=== PATIENT | male | born 1940 | race Caucasian/White ===

== ENCOUNTER 2024-12-17 08:23 | Emergency (ER) | payer MEDICARE, SELFPAY ==
--- NOTE | ~2024-12-17 | XR_ITS ---
EXAMINATION: XR knee LT min 4V DATE: 12/17/2024 09:10 INDICATION: Left knee injury and pain and swelling. TECHNIQUE: 4 views of left knee were obtained. COMPARISON: None. FINDINGS: Alignment is normal. No fracture. There is moderate osteoarthritis of medial compartment an d mild osteoarthritis of lateral and patellofemoral compartments. There is a small knee joint effusio n. IMPRESSION: 1. Moderate left knee osteoarthritis. 2. Small left knee joint effusion. Reviewed, dictated and finalized at location B. ER WAITRESS
--- NOTE | ~2024-12-17 | XR_ITS ---
EXAMINATION: XR chest 2V DATE: 12/17/2024 09:10 INDICATION: Right-sided lower rib tenderness post fall TECHNIQUE: PA and lateral views of the chest were obtained. COMPARISON: None FINDINGS: Cortical angulation consistent with nondisplaced fracture of the lateral right ninth rib. Lungs are c lear with no focal airspace opacities, pulmonary edema, pleural effusion or pneumothorax. Heart size is normal. Tortuous and atherosclerotic thoracic aorta. Dual lead pacemaker seen with leads projectin g over the expected locations of the right atrium and right ventricle. Mild thoracic spondylosis with mild anterior wedging of a couple vertebral bodies at the thoracolumbar junction and additional midt horacic compression fracture. IMPRESSION: 1. Nondisplaced lateral right ninth rib fracture. 2. No acute cardiopulmonary disease. 3. Midthoracic compression fracture, likely chronic. Reviewed, dictated and finalized at location A. FEEDER
[2024-12-17 08:34] VITALS: BP 111/70; PULSE 86; RESP 16; TEMP 35.9; O2SAT 97
--- OUTSIDE RECORDS SUMMARY | 2024-12-17 08:34 | XMS_ITS ---
Author Organization [facility] Address [address] [place] [address] Phone Care Team Providers Care Health Informatics Instructor Name Role Phone Unavailable Unavailable Unavailable Plan of Treatment No Plan of Treatment Recorded Assessments Includes: Assessments for all patient encounters No Assessments Recorded Medical Equipment - Implanted Devices Includes: Current and historical Devices No Medical Equipment Recorded Medications Administered Includes: Administered Medications in patient's chart No Administered Medications Recorded Results Includes: Results from 12/17/2023 through 12/17/2024 No Results Recorded For Specified Dates History of Present Illness History of Present Illness not supported for this document type No History of Present Illness Recorded Social History No Social History Recorded - Smoking Status Unknown Medical History Includes: Medical History in patient's chart No Medical History Recorded Family History Includes: Family History in patient's chart No Family History Recorded Review of Systems Review of Systems not supported for this document type No Review of Systems Recorded Mental Status No Mental Status Recorded Functional Status No Functional Status Recorded Physical Exam Physical Exam not supported for this document type No Physical Exam Recorded Insurance Includes: Active Insurance Policies No Insurance Coverage Recorded Guarantor Relationship Effective Dates Guarantor Ph one THAD TORIBIO Self [id number] Clinical Notes Includes: Signed Clinical Notes starting from 12/13/2022 No Clinical Notes Recorded
--- OUTSIDE RECORDS SUMMARY | 2024-12-17 08:34 | XMS_ITS | Encounter Summary ---
Author Name [facility] Organization [facility] Address [address] [place] [address] Care Team Providers Care Specimen Accessioner Name Role Phone RADHA KLEIN Primary Care Provider Unavailuche e Insurance Providers: All historical and current Section Date Range: From patient's date of to the date document was created. This section includes the names of all active insurance providers for the patient. Insurance Provider Type of Coverage Plan Name Start of Policy Coverage End of Policy Coverage Group Number Member ID Insurance Provider's Telephone Number Policy Vo's Name Patient's Relationship to Policy Vo MEDICARE (WNR) MEDICARE (M) PART A Jan 22, 2003 PART A [id number] KEON DAVIS PATIENT MEDICARE (WNR) MEDICARE (M) PART B Jan 22, 2003 PART B [id number] KEON DAVIS PATIENT Selected Encounter This section includes the information on record at ID for the Encounter. Date/Time Encounter Type Encounter Description Reason Provider Source Nov 19, 2024 10:30 AM OFFICE O/P EST HI 40 MIN PRIMARY CARE/MEDICINE ICD-10-CM I48.91 Unspecified atrial fibrillation KATHIA KABA Prasanth Encounter Template Text not used by ID Assessments - Encounter Diagnoses This section includes the primary and secondary diagnoses documented for the Encounter. Date/Time Primary/Secondary Diagnosis Diagnosis Name Provider Source Nov 19, 2024 12:47 PM PRIMARY Unspecified atrial fibrillation KATHIA KABA [facility] Nov 19, 2024 12:47 PM SECONDARY Encounter for immunization KATHIA KABA [facility] Nov 19, 2024 12:47 PM SECONDARY Essential (primary) hypertension KATHIA KABA [facility] Nov 19, 2024 12:47 PM SECONDARY Hyperlipidemia, unspecified KATHIA KABA [facility] Nov 19, 2024 12:47 PM SECONDARY Malignant neoplasm of prostate KATHIA KABA [facility] Nov 19, 2024 12:47 PM SECONDARY Melanoma in situ, unspecified PROKATHIA MULLER [facility] Nov 19, 2024 12:47 PM SECONDARY Pain in right ankle and joints of right foot KATHIA KABA [facility] Nov 19, 2024 12:47 PM SECONDARY Type 2 diabetes mellitus without complications KATHIA KABA [facility] Nov 19, 2024 12:47 PM SECONDARY Unspecified dementia, mild, without beh/psych/mood/anx KATHIA KABA [facility] Plan of Treatment: Future Appointments (+ 6 months) and Future Tests (+/- 45 days) The Plan of Treatment section includes future care activities for the [facility] This section includes future appointments and future orders which are active, pending or scheduled. Future Appointments This section includes appointments that were scheduled to occur 6 months from the date of the Encounter, up to a maximum of 20 appointments. The data comes from all ID treatment facilities. Appointment Date/Time Appointment Type Appointme nt Facility Name Dec 06, 2024 09:30 AM AMBULATORY - REHAB MEDICIN E [facility] Lab Results: +/- 30 days of the encounter This section includes the Chemistry and Hematology Lab Results on record with ID for the patient. Radiology Reports and Pathology Reports are provided separately, in subsequent sections. Lab Results This section contains the Chemistry/Hematology Results that were resulted 30 days before or 30 daysafter the date of the Encounter. Date/Time Source Result Type Result - Unit Interpretation Reference Range Comment Nov 19, 2024 12:00 AM [facility] VITAMIN D, 25-HYDROXY Specimen Type: SERUM No comment entered. Ordering Provider: KATHIA KABA Report Released Date/Time: Nov 19, 2024 11:20 AM Reporting Lab: [facility] [address] [facility] [phone] Performing Lab: [facility] [address] [place] [phone] VITAMIN D, 25-HYDROXY 32.8 ng/mL 30-96 Nov 19, 2024 12:00 AM [facility] COMPREHENSIVE METABOLIC PANEL Specimen Type: PLASMA Comment: No hemolysis noted. Ordering Provider: KATHIA KABA Report Released Date/Time: Nov 19, 2024 11:20 AM Reporting Lab: [facility] [address] [place] [phone] Performing Lab: [address] [phone] CREATININE 0.76 mg/dL 0.7-1.3 UREA NITROGEN 17.3 mg/dL 9.0-25.0 GLUCOSE 141 mg/dL H 72-99 SODIUM 140 meq/L 136-145 POTASSIUM 4.7 meq/L 3.5-5 CHLORIDE 108 meq/L H 98-107 CARBON DIOXIDE 27 meq/L 22-31 CALCIUM 9.4 mg/dL 8.4-10.4 PROTEIN 7.4 g/dL 6-8.6 ALBUMIN 4.4 g/dL 3.4-5 TOTAL BILIRUBIN 0.7 mg/dL 0.2-1.2 ALKALINE PHOSPHATASE 80 U/L 40-150 AST/SGOT 20 U/L 5-34 ALT/SGPT 21 U/L 8-40 EGFR (CKD-EPI 2020) 87.5 >60 Nov 19, 2024 12:00 AM [facility] CB CBC Specimen Type: BLOOD No comment entered. Ordering Provider: KATHIA KABA Report Released Date/Time: Nov 19, 2024 11:20 AM Reporting Lab: [facility] [address] [place] [phone] Performing Lab: [address] [phone] WBC 7.4 10*3/uL 3.6-11.2 RBC 4.79 10*6/uL 4.10-5.70 HGB 13.7 g/dL 13.1-16.8 HCT 42.1 38.2-48.4 MCV 87.9 fL 80.0-100.0 MCH 28.6 pg 27.0-34.0 MCHC 32.5 g/dL L 33.0-36.0 PLT 216 10*3/uL 150-400 MPV 10.2 fL 7.5-11.2 RDW 12.0 11.8-15.1 LYMPHOCYTES, AUTO % 29 MONOCYTES, AUTO % 7 NEUTROPHILS, AUTO % 58 EOSINOPHILS, AUTO % 5 BASOPHILS, AUTO % 1 LYMPHOCYTES, ABSOLUTE 2.15 10*3/uL 0.77-4.50 MONOCYTES, ABSOLUTE 0.55 10*3/uL 0.19-0.80 NEUTROPHILS, ABSOLUTE 4.29 10*3/uL 2.10-8.00 EOSINOPHILS, ABSOLUTE 0.37 10*3/uL 0.00-0.60 BASOPHILS, ABSOLUTE 0.06 10*3/uL 0.00-0.20 Nov 19, 2024 12:00 AM [facility] HGA1C Specimen Type: BLOOD No comment entered. Ordering Provider: KATHIA KABA Report Released Date/Time: Nov 19, 2024 11:20 AM Reporting Lab: [facility] [address] [facility] [phone] Performing Lab: [facility] [address] [place] [phone] HGA1C 7.4 H 4.0-6.0 Nov 19, 2024 12:00 AM [facility] LIPID PANEL (STL) Specimen Type: PLASMA Comment: No hemolysis noted. Ordering Provider: KATHIA KABA Report Released Date/Time: Nov 19, 2024 11:20 AM Reporting Lab: [facility] [address] [facility] [phone] Performing Lab: [facility] [address] [facility] [phone] CHOLESTEROL 145 mg/dL 0-200 TRIGLYCERIDE 106 mg/dL 0-150 CALCULATED LDL 94 mg/dL HDL(New) 30 mg/dL L >40 Nov 19, 2024 12:00 AM [facility] MICRAL/CREAT PROFILE (STL) Specimen Type: URINE Comment: uALB/CREAT Ratio Unable to be calculated Unable to calculate due to Microalbumin < 5.0 mg/L Ordering Provider: KATHIA KABA Report Released Date/Time: Nov 19, 2024 11:20 AM Reporting Lab: [facility] [address] [place] [phone] Performing Lab: [address] [phone] URINE ALBUMIN (PB-STL) <5.0 mg/L uACR (STL) comment mg/g 0-29 CREATININE URINE/OTHERS 73.2 mg/dL 63-166 Nov 19, 2024 12:00 AM [facility] URINALYSIS (STL-PB) Specimen Type: URINE No comment entered. Ordering Provider: KATHIA KABA Report Released Date/Time: Nov 19, 2024 11:20 AM Reporting Lab: [address] [phone] Performing Lab: [address] [phone] URINE COLOR Light-Yellow Yellow U.BILIRUBIN Negative mg/dL Negative U.PH 6.5 5.0-8.0 URINE WBC/HPF <1 /[HPF] 0-5 URINE RBC/HPF <1 /[HPF] 0-5 APPEARANCE Clear Clear U.NITRITE Negative mg/dL Negative MUCUS RARE /[LPF] Negative -Ra re AMORPHOUS CRYSTALS OCC /[HPF] URN.GLUCOSE Normal mg/dL Negative URN.PROTEIN 50 mg/dL H URN.UROBILINOGEN Normal mg/dL Normal URN.BLOOD Negative mg/dL Negat alfredo-Tr cassidy URN.KETONES Negative mg/dL Neg ative-Tr cassidy URN.LEUK.EST. Negative mg/dL N egative-Tr cassidy URN.SPECIFIC GRAVITY 1.020 Nov 19, 2024 12:00 AM [facility] TSH (MA-PB) Specimen Type: SERUM No comment entered. Ordering Provider: KATHIA KABA Report Released Date/Time: Nov 19, 2024 11:20 AM Reporting Lab: [facility] [address] [place] [phone] Performing Lab: [address] [phone] TSH 0.928 u[IU]/mL 0.47-5 Vital Signs: All taken on the encounter date This section contains inpatient and outpatient Vital Signs collected on the date of the Encounter. Date/Time Temperature Pulse Blood Pressure Respiratory Rate SP02 Pain Height Weight Body Mass Index Source Nov 19, 2024 10:25 AM 140/84 [facility] Nov 19, 2024 10:25 AM 97.9 67 147/82 20 94 1 177.7 26 [facility] Immunizations: All administered on the encounter date This section contains immunizations associated to the Encounter. Immunization Series Date Issued Reaction Comments TDAP Nov 19, 2024 Social History: Smoking Status (Most current) and Tobacco Use (All prior to encounter date) This section includes the most current, and the historical, smoking and tobacco- related health factors from the ID facility where the Encounter took place. Current Smoking Status This section includes the most current smoking, or tobacco-related health factor, from the ID facility where the Encounter took place. Date/Time Current Smoking Status Comment Facil ity Nov 19, 2024 10:30 AM VA-TOBACCO USE EVERY DAY OTHER T [facility] Tobacco Use History This section includes a history of the smoking, or tobacco-related health factors, that were collected on or before the date of the Encounter. The data comes from the ID facility where the Encounter took place. Date/Time Smoking Status/Tobacco Use Comment F acility Nov 19, 2024 10:30 AM VA-TOBACCO NEVER USED OTHER TYPE [facility] Nov 19, 2024 10:30 AM VA-TOBACCO SCREEN FOLLOW-UP [facility] Nov 19, 2024 10:30 AM VA-TOBACCO USE ADVICE [facility] Nov 19, 2024 10:30 AM VA-TOBACCO USE INDUSTRIAL PHOTOGRAPHER NO [facility] Nov 19, 2024 10:30 AM VA-TOBACCO USE EVERY DAY OTHER T E [facility] Nov 19, 2024 10:30 AM VA-TOBACCO USE EVERY DAY SMOKELE SS [facility] Nov 19, 2024 10:30 AM VA-TOBACCO USE FORMER CIGARETTES [facility] Nov 19, 2024 10:30 AM VA-TOBACCO USE MED NO [facility] Oct 26, 2013 09:20 AM QUIT TOBACCO >7 YEARS AGO [facility] Encounter Notes: All associated encounter notes This section contains the clinical notes associated to the Encounter. Date/Time Encounter Note(s) Provider Source Nov 19, 2024 09:04 PM PHYSICIAN LETTERS: LOCAL TITLE: TEST RESULT GENERAL LETTER ST[facility] STANDARD TITLE: PHYSICIAN LETTERS DATE OF NOTE: NOV 19, 2024@21:04 ENTRY DATE: NOV 19, 2024@21:04:17 AUTHOR: KATHIA KABA EXP COSIGNER: URGENCY: STATUS: COMPLETED [facility] [address] [place] [address] NOV 19, 2024 KEON DAVIS [facility] [place] [address] Dear Keon Davis, I would like to update you on your recent test results. LIPID PROFILE - High cholesterol and triglycerides (lipids) are risk factors for heart disease. Your cholesterol should fall between 140 and 200, and your triglycerides levels should be less than or equal to 150. HDL is the good cholesterol and should ideally be greater than 40. LDL is the bad cholesterol and optimal levels should be less than 100 (near optimal is between 100 and 129). TRIGLYCERIDE 106 mg/dL 11/19/2024 00:00 CHOLESTEROL 145 mg/dL 11/19/2024 00:00 HDL(New) 30 L mg/dL 11/19/2024 00:00 CALCULATED LDL 94 mg/dL 11/19/2024 00:00 No DIRECT LDL EO data found These results are abnormal. The HDL is a little low. Please continue to take the atorvastatin. HEMOGLOBIN A1C - Gives us information about your diabetes (sugar or glucose) control over the past 3 months. Your target is to keep your A1C below 8 %. HGA1C 7.4 H % 11/19/2024 00:00 These results are abnormal. The A1C does show as high, but your A1C goal (due to your age) is under 8% and this is at goal. CBC - A complete blood count (CBC) gives important information about the kinds and numbers of cells in the blood, especially red blood cells, white blood cells, and platelets. HGB 13.7 g/dL 11/19/2024 00:00 HEMATOCRIT 42.1 % (11/19/24 00:00) PLT 216 10*3/uL 11/19/2024 00:00 WHITE BLOOD COUNT 7.4 10*3/uL (11/19/24 00:00) These readings are within normal limits. CHEM 7 - This is important information about the current status of your kidneys, liver, and electrolyte and acid/base balance as well as of your blood sugar and blood proteins. SODIUM 140 mEq/L 11/19/2024 00:00 POTASSIUM 4.7 mEq/L 11/19/2024 00:00 CHLORIDE 108 H mEq/L 11/19/2024 00:00 UREA NITROGEN 17.3 mg/dL 11/19/2024 00:00 CREATININE 0.76 mg/dL 11/19/2024 00:00 CALCIUM 9.4 mg/dL 11/19/2024 00:00 CARBON DIOXIDE 27 mEq/L 11/19/2024 00:00 GLUCOSE 141 H mg/dL 11/19/2024 00:00 EGFR (CKD-EPI 2020) 87.5 11/19/2024 00:00 These results are abnormal. The chloride is minimally elevated, please make sure to stay well-hydrated. The glucose is elevated, but the A1C is at goal. Please continue to take your medications. I did order the glucometer and testing supplies for you to monitor your blood sugar. LIVER FUNCTION PANEL - These are tests for liver function: PROTEIN 7.4 g/dL 11/19/2024 00:00 ALBUMIN 4.4 g/dL 11/19/2024 00:00 TOTAL BILIRUBIN 0.7 mg/dL 11/19/2024 00:00 ALKALINE PHOSPHATASE 80 U/L 11/19/2024 00:00 AST/SGOT 20 U/L 11/19/2024 00:00 ALT/SGPT 21 U/L 11/19/2024 00:00 These readings are within normal limits. TSH - Thyroid-stimulating hormone (also known as TSH or thyrotropin) is a peptide hormone synthesized and secreted by thyrotrope cells in the anterior pituitary gland, which regulates the endocrine function of the thyroid gland. TSH 0.928 uIU/mL 11/19/2024 These readings are within normal limits. VITAMIN D - Helps promote the proper utilization of calcium and phosphorus, thereby producing proper bone maintenance. VITAMIN D, 25-HYDROXY 32.8 ng/mL 11/19/2024 These readings are within normal limits. URINALYSIS - A urinalysis (or UA ) is an array of tests performed on urine and one of the most common methods of medical diagnosis. URINALYSIS URINE COLOR Light-Yellow 11/19/2024 00:00 APPEARANCE Clear 11/19/2024 00:00 U.PH 6.5 11/19/2024 00:00 U.BILIRUBIN Negative mg/dL 11/19/2024 00:00 U.NITRITE Negative mg/dL 11/19/2024 00:00 URINE RBC/HPF <1 /HPF 11/19/2024 00:00 URINE WBC/HPF <1 /HPF 11/19/2024 00:00 MUCUS RARE /LPF 11/19/2024 00:00 AMORPHOUS CRYSTALS OCC /HPF 11/19/2024 00:00 These results are abnormal. Make sure to stay well hydrated. FUTURE APPOINTMENTS: 12/06/2024 09:30 ALEX-VVC OT PAIN 11/18/2025 10:30 CLYDE-NOCO PACT 5 Sincerely, KATHIA KABA, MSN, ANP-C ADVANCED NURSE PRACTITIONER KEON DAVIS ROSA M [facility] Nov 19, 2024 10:34 AM PRIMARY CARE NOTE: LOCAL TITLE: PRIMARY CARE PROVIDER ESTABLISHED [facility] STANDARD TITLE: PRIMARY CARE NOTE DATE OF NOTE: NOV 19, 2024@10:34 ENTRY DATE: NOV 19, 2024@10:34:41 AUTHOR: KATHIA KABA EXP COSIGNER: URGENCY: STATUS: COMPLETED ESTABLISHED PATIENT [id number]: REASON FOR VISIT/CHIEF COMPLAINT: Patient of HIWOT Na, accompanied by his , for re-evaluation and management of his a fib, dm, prostate ca, hld, melanoma, pacemaker, htn, dementia, and OAB. HPI: Has cramps in his leg, mainly on right ankle, for the past year. Right ankle is mainly painful at night, Takes apap 1000 mg bid (8am and 8 pm). Denies any recent or past injury to the ankle, denies swelling, ertyhema. Wanting to get the Myrbetriq 50 mg from ID, using 2-3 depends per day, has persistent urinary leakage, still on the oxybutynin but not helping and causes a dry mouth. Seen by pvt urologist and there are to send the records again.. Patient and aware of need for the information for the prior approval Needs a BP monitor, does not have one Does not have a glucometer at home to check his blood sugars, has family members that are nurses. He has been taking the metformin. WHAT IS YOUR GOAL FOR TODAY? SOURCE(S) OF HISTORY: Patient Family PAST MEDICAL HISTORY: 1) Polyp of colon (SNOMED CT 85902546) 2) Benign hypertension (SNOMED CT 10407501) 3) Prostate cancer 4) Hearing loss (SNOMED CT 36723175) 5) Melanoma in situ 6) H/O: cardiac pacemaker in situ (SNOMED CT 487437597) 7) AF - Atrial Fibrillation (SCT 28135219) 8) Diabetes Mellitus Type 2 (SCT 10463457) 9) Hyperlipidemia 10) Generalized aches and pains SOCIAL HISTORY: tobacco: uses chew tobacco daily, not ready to quit etoh: none ALLERGIES: NIACIN ALLERGY REVIEW: Allergy list reviewed and remains current. MEDICATION RECONCILIATION: I have reviewed the patient's medication list with the patient and/or his/her care-safety engineer pressure vessels. Handwritten corrections, additions and/or deletions were made to the list. Corrected Outpatient Medication List was provided to the patient/caregiver. Active Outpatient Medications (including Supplies): Active Outpatient Medications Status 1) ACETAMINOPHEN 500MG TAB TAKE TWO TABLETS BY MOUTH THREE ACTIVE TIMES A DAY NEEDED CAUTION: DO NOT EXCEED 4000MG PER DAY ACETAMINOPHEN (APAP) FROM ALL MEDS. Indication: FOR PAIN 2) APIXABAN 5MG TAB TAKE ONE TABLET BY MOUTH TWICE A DAY ACTIVE Indication: FOR ANTICOAGULATION 3) ATORVASTATIN CALCIUM 40MG TAB TAKE ONE-HALF TABLET BY MOUTH ACTIVE EVERY EVENING TO LOWER CHOLESTEROL Indication: FOR HIGH CHOLESTEROL 4) DEPEND UNDERWEAR,MAXIMUM,MEN SM/MED USE 1 DIAPER TO AFFECTED ACTIVE AREA(S) THREE TIMES A DAY NEEDED Indication: FOR INCONTINENCE 5) DONEPEZIL HCL 10MG TAB TAKE ONE TABLET BY MOUTH ONCE A DAY ACTIVE (JUST BEFORE BEDTIME) Indication: FOR DEMENTIA 6) LISINOPRIL 5MG TAB TAKE ONE-HALF TABLET BY MOUTH ONCE A DAY ACTIVE (S) FOR HEART OR BLOOD PRESSURE Indication: FOR HIGH BLOOD PRESSURE 7) METFORMIN HCL 500MG 24HR SA TAB TAKE ONE TABLET BY MOUTH ACTIVE ONCE A DAY FOR BLOOD SUGAR CONTROL. TAKE WITH FOOD. AVOID ALCOHOL. DISCONTINUE BEFORE GETTING XRAY DYE. 8) METOPROLOL TARTRATE 50MG TAB TAKE ONE-HALF TABLET BY MOUTH ACTIVE (S) TWICE A DAY FOR HEART/BLOOD PRESSURE. TAKE WITH OR IMMEDIATELY FOLLOWING FOOD. Indication: FOR HIGH BLOOD PRESSURE 9) OXYBUTYNIN CHLORIDE 5MG TAB TAKE ONE TABLET BY MOUTH THREE ACTIVE TIMES A DAY Indication: FOR OVERACTIVE BLADDER REVIEW OF SYSTEMS: General: Denies fever or chills, weight loss or weight gain Eyes: Denies blurry or double vision. last eye exam 2 year ago Ears, Nose, Mouth, Throat: + hearing loss, nasal drainage or sore throat. Denies dizziness. Endo: Denies heat or cold intolerance, polydipsia, polyuria, or polyphagia. Cardiovascular: Denies chest pain, palpitations, or dizziness. Respiratory: Denies cough or + shortness of breath. Needs to walk per PCP ABD/GI: Denies abdominal pain, nausea, vomiting, constipation, or diarrhea. Musculoskeletal/Extremities: right ankle pain. Denies edema. 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 Frequent leakage Psych: Gets depressed during winter not able to go outside to fish, denies any si/hi. Denies anxiety, or + insomnia. Neuro: Denies PURI, tremors, neuropathy, or seizures. Dementia, has improved with the donepezil Skin: Denies rashes, skin lesions. PHYSICAL EXAMINATION: Male VITALS (most recent, as listed in the electronic record): B/P: 140/84 (11/19/2024 10:25) Pulse: 67 (11/19/2024 10:25) Temperature: 97.9 F [36.6 C] (11/19/2024 10:25) Weight: 177.7 lb [80.60 kg] (11/19/2024 10:25) Height: 69 in [175.3 cm] (10/26/2013 09:20) BMI: 26.3 Pain: 1 (11/19/2024 10:25) (0-10 scale) Gen:84 y/o wm in no apparent distress ENT: TM not visualized due to cerumen. Throat without ertyhema or exudate Neck: supple, no lymphadenopathy, no thyroidmegaly, or carotid bruits Lungs: CTA Heart: RRR S1S2-m/r/g Abdomen: soft, non-tender, no hepatosplenomegaly, + bowel sounds x 4 quadrants, neuro: alert and oriented, no focal deficits, ambulates with steady gate : deferred Psych: good affect, denies si/hi ext: no edema, + pedal pulses right ankle: no edema or erythema, normal ROM skin: warm and dry, no rashes or skin lesions DATA REVIEW: HbA1C: HGA1C 6.9 H % 11/25/2023 10:15 Lipid Panel: TRIGLYCERIDE 106 mg/dL 11/25/2023 10:15 CHOLESTEROL 127 mg/dL 11/25/2023 10:15 HDL(New) 32 L mg/dL 11/25/2023 10:15 CALCULATED LDL 74 mg/dL 11/25/2023 10:15 CMP: SODIUM 141 mEq/L 11/25/2023 10:15 POTASSIUM 4.0 mEq/L 11/25/2023 10:15 CHLORIDE 107 mEq/L 11/25/2023 10:15 UREA NITROGEN 17.1 mg/dL 11/25/2023 10:15 CREATININE 0.84 mg/dL 11/25/2023 10:15 CALCIUM 9.6 mg/dL 11/25/2023 10:15 PROTEIN 7.3 g/dL 11/25/2023 10:15 ALBUMIN 4.3 g/dL 11/25/2023 10:15 ALKALINE PHOSPHATASE 70 U/L 11/25/2023 10:15 ALT/SGPT 18 U/L 11/25/2023 10:15 AST/SGOT 21 U/L 11/25/2023 10:15 TOTAL BILIRUBIN 0.8 mg/dL 11/25/2023 10:15 CARBON DIOXIDE 22 mEq/L 11/25/2023 10:15 GLUCOSE 110 H mg/dL 11/25/2023 10:15 EGFR (CKD-EPI 2020) 85.5 11/25/2023 10:15 CBC: WBC 7.2 10*3/uL 11/25/2023 10:15 RBC 4.71 10*6/uL 11/25/2023 10:15 HGB 13.6 g/dL 11/25/2023 10:15 HCT 41.6 % 11/25/2023 10:15 MCV 88.3 fL 11/25/2023 10:15 MCH 28.9 pg 11/25/2023 10:15 MCHC 32.7 L g/dL 11/25/2023 10:15 RDW 12.2 % 11/25/2023 10:15 PLT 241 10*3/uL 11/25/2023 10:15 MPV 10.4 fL 11/25/2023 10:15 NEUTROPHILS, AUTO % 56 % 11/25/2023 10:15 LYMPHOCYTES, AUTO % 32 % 11/25/2023 10:15 MONOCYTES, AUTO % 7 % 11/25/2023 10:15 EOSINOPHILS, AUTO % 4 % 11/25/2023 10:15 BASOPHILS, AUTO % 1 % 11/25/2023 10:15 NEUTROPHILS, ABSOLUTE 4.08 10*3/uL 11/25/2023 10:15 LYMPHOCYTES, ABSOLUTE 2.31 10*3/uL 11/25/2023 10:15 MONOCYTES, ABSOLUTE 0.49 10*3/uL 11/25/2023 10:15 EOSINOPHILS, ABSOLUTE 0.30 10*3/uL 11/25/2023 10:15 BASOPHILS, ABSOLUTE 0.05 10*3/uL 11/25/2023 10:15 PSA: No PSA EO data found TSH: TSH 1.225 uIU/mL 11/25/2023 10:15 INR: No INR EO data found UA: URINE COLOR Light-Yellow 05/20/2023 10:04 APPEARANCE Clear 05/20/2023 10:04 U.PH 6.0 05/20/2023 10:04 U.BILIRUBIN Negative mg/dL 05/20/2023 10:04 U.NITRITE Negative mg/dL 05/20/2023 10:04 Dilantin: ____ Digoxin: No data available for: DIGOXIN Chest x-ray: No Radiology exams found. EKG: No data available for: EKG CONSULT STL EKG CONSULTS PB EKG RESULTS MA Result: Acceptable Follow-up Action: Data results reviewed with patient and/or ASSESSMENT/PLAN: 1. A. Fib: controlled, cont apixaban 5 mg bid and metoprolol tartrate 25 mg BID. Followed by his water inspector. 2. DM: A1C 6.9 in 11/2023, controlled, and on metformin. -recheck a1c, renal function, micral today -cont metformin -does not have a glucometer, will order meter and testing supplies and to call once receives so RNCM can make appt for education on the glucometer and testing. -foot exam completed today -to see pvt eye doctor for eye exam, last exam 2 years ago. 3. Prostate Ca: hx of prostatectomy, stable, followed by pvt urologist 4. hld: check flp, currently on atorvastatin 20 mg daily. 5. melanoma: no recurrence, followed by pvt clinical trials manager. 6. pacemaker: controlled, followed by pvt cardiology EP 7. htn: stable, cont lisinopril 5 mg daily. Does not have BP monitor and given one from clinic. 8. dementia: improved with the donepezil. 9. OAB: uncontrolled with the oxybutynin, waiting on records from his urologist so we can place a PADR for the Alicia, called to the urologist office and I gave them the fax number to the clinic. 10. Right ankle pain: for the year with no hx of injury, taking APAP twice daily at 8am and 8pm. Offered imaging of ankle but declined, discussed conservative measures for pain control, topical cream, moving PM dose of APAP closer to his bedtime and wants to start with this. 11. HM: Covid: Jul 2024 ([facility] per ). Flu: 07/2024 ([facility] per ). Prevnar 13: 2013 Pneumovax 23: 2020 TdaP: today Zostavax: 2014 RETURN TO CLINIC:6 months Return to Clinic order placed SUMMARY STATEMENT: Plan of care has been discussed with including expected therapeutic benefits and potential side effects of prescribed medication and treatments. verbalizes understanding and is in agreement with the plan of care. Patient was instructed to keep all scheduled appointments and contact management psychologist for any additional problems. PREVENTION & SCREENING: ALCOHOL: Clinical Reminder not due now or within a month BLOOD PRESSURE: Clinical Reminder not due now or within a month HEMOGLOBIN A1C: Clinical Reminder not due now or within a month Suicide Screen - V: C-SSRS Screening [place]-Suicide Severity Rating Scale (C-SSRS Screener) 1. Over the past month, have you wished you were or wished you could go to sleep and not wake up? No 2. Over the past month, have you had any actual thoughts of killing yourself? No 3. Over the past month, have you been thinking about how you might do this? Response not required due to responses to other questions. 4. Over the past month, have you had these thoughts and had some intention of acting on them? Response not required due to responses to other questions. 5. Over the past month, have you started to work out or worked out the details of how to kill yourself? Response not required due to responses to other questions. 6. If yes, at any time in the past month did you intend to carry out this plan? Response not required due to responses to other questions. 7. In your lifetime, have you ever done anything, started to do anything, or prepared to do anything to end your life (for example, collected pills, obtained a gun, gave away valuables, went to the roof but didn't jump)? No 8. If YES, was this within the past 3 months? Response not required due to responses to other questions. Sexual Orientation - CP,L,N,P,PH,PS,S,U: The patient thinks of their sexual orientation as: Straight or Heterosexual COVID-19 Immunization - L,N,P,PH,U: Vaccine given previously - no written/electronic documentation available Comment: given at [facility] The patient was instructed to bring a copy of their COVID-19 vaccine information to their next appointment so that this can be accurately recorded in their ID medical record. Alcohol Use Screen (AUDIT-C) - V: Alcohol Screen: SCREEN FOR ALCOHOL (AUDIT-C) An alcohol screening test (AUDIT-C) was negative (score=0). 1. How often did you have a drink containing alcohol in the past year? Consider a drink to be a 12 ounce can or bottle of regular beer, 8 ounces of malt liquor, a 5 ounce glass of table wine, or a 1.5 ounce shot of liquor (like scotch, gin, or vodka). Never 2. How many drinks containing alcohol did you have on a typical day when you were drinking in the past year? Response not required due to responses to other questions. 3. How often did you have six or more drinks on one occasion in the past year? Response not required due to responses to other questions. Depression Screening - V: Perform PHQ-2 A PHQ-2 screen was performed. The score was 2 which is a negative screen for depression. Over the past two weeks, how often have you been bothered by the following problems? 1. Little interest or pleasure in doing things Several days 2. Feeling down, depressed, or hopeless Several days Homelessness/Food Insecurity Screen - DI,L,N,P,PH,PS,S,U: In the past 2 months, have you been living in stable housing that you own, rent, or stay in as part of a household? Yes - Living in stable housing. Are you worried or concerned that in the next 2 months you may NOT have stable housing that you own, rent, or stay in as part of a household? No - Not worried about housing near future The reports the following: Within the past 12 months, you worried whether your food would run out before you got money to buy more. Never true Within the past 12 months, the food you bought just didn't last and you didn't have money to get more. Never true Influenza Immunization - L,N,P,PH,U: Seasonal Flu Vaccine The influenza vaccine clinical reminder is not due at this time. Tobacco Use Screening - AT,DE,L,M,N,P,PH,PS,RT,S,U: The patient is a former cigarette smoker. The patient uses other type(s) of tobacco every day. Other Tobacco Type(s) used: Smokeless tobacco (e.g., dip, chew, snuff, snus) Patient was advised to stop smoking and/or using other tobacco products. Advised patient that a combination of behavioral counseling and FDA-approved cessation medications is the most effective way to ensure their success in stopping to smoke and/or using other tobacco products. The patient was not interested in additional information about behavioral counseling and other support strategies discussed. Informed patient that medications can help with cravings and withdrawal symptoms, and they greatly increase the chances of successfully stopping your tobacco use. The patient was not interested in a prescription for tobacco cessation medications. Frail/Elderly Screen: ADL Screen - Wiseman Index of [place] in Activities of Daily Living Bathing: (3 Points) Receives no assistance (gets in and out of tub by self, if tub is usual means of bathing) Dressing: (3 Points) Gets clothes and gets completely dressed without assistance. Toileting: (3 Points) Goes to toilet room , cleans self, and arranges clothes without assistance (may use object for support such as cane, walker, or wheelchair, and may manage own night bedpan or commode, emptying same next morning) Transferring: (3 Points) Moves in and out of bed and in and out of chair without assistance (may be using object for support, such as cane or walker) Continence: (2 Points) Has occasional accidents or urination or bowels Feeding: (3 Points) Feeds self without assistance Total Score: 17 Points 18 = High (patient independent) 6 = Low (patient very dependent) IADL Screen - [place] Instrumental Activities of Daily Living Scale Ability to use telephone: (1 point) Operates Telephone on own initiative; looks up and dials numbers. Shopping: (1 point) Takes care of all shopping needs independently. Food preparation: (1 point) Plans, prepares, and serves adequate meals independently. Housekeeping: (1 point) Performs light daily tasks such as dishwashing, bed making. Laundry: (1 point) Does personal laundry completely. Mode of transportation: (1 point) Travels independently on public transportation or drives own car. Responsibility for own medications: (1 point) Is responsible for taking medications in correct dosages at correct times. Ability to handle finances: (1 point) Manages financial matters independently (budgets, writes checks, pays rent and bills, goes to bank); collects and keeps track of income. Total score: 8 points 8 = High function, independent 0 = Low function, dependent Falls Screen: No falls within the past 12 months. Incontinence Screen: YES - Incontinence is a problem for this patient. Is urinary incontinence NEW for this patient? NO - Incontinence is NOT a new problem. What is the current treatment? oxybutynin and to be trialed on [facility] At-Risk Screen - L,N,PH,U: Patient identified to be at risk for the following eye condition(s): DIABETIC RETINOPATHY: Diabetes Diagnosis Information: Encounter Diagnosis: 11/21/2023@14:30 E11.9 (ICD-10-CM) Type 2 Diabetes Mellitus without Complications rank: PRIMARY Prov. Narr. - Diabetes Mellitus Type 2 ([facility] [id number]) Action: No Referral Ordered: Eye exam completed elsewhere by an Refractory Manager or Cabin Cleaning Supervisor Diabetic retinal exam result: Results Unknown (recommended that patient proceed with eye care request or obtain outside retinal exam result within 90 days) Date: 2021 ? Exact date is unknown Location: [facility] Foot Check - L,N,P,PH,PO,PT,U: A complete foot check was completed at this encounter. VISUAL INSPECTION: Includes inspection for skin breaks, deformity, erythema, trauma, pallor on elevation, dependent rubor, nail deformities, extensive callus and pitting edema. Visual exam results: Normal PEDAL PULSES: Includes palpation of dorsalis and posterior tibial pulses and signs/symptoms of vascular compromise like pain, pallor, parasthesia or paralysis. Present (even if diminished) SENSORY CHECK: Includes 10 gram Monofilament (Beaver-Jey) test of sensation. Intact (Greater than or equal to 80% of sites checked) Abnormal (Less than 80% of sites checked): Intact LOW-RISK: LOW RISK INFORMATION PROVIDED: 1. Advised patient not to walk barefoot. 2. Explained the importance of daily foot checks for changes. 3. Stressed the importance of daily foot hygiene, including bathing and complete drying. The patient verbalized understanding and was offered a detailed handout on diabetic foot care. Prior Approval/Non-formulary Drug: MEDICATION USE EVALUATION Tdap Immunization - L,N,P,PH,U: See orders /es/ KATHIA KABA, MSN, ANP-C ADVANCED NURSE PRACTITIONER Signed: 11/19/2024 12:47 KATHIA KABA [facility] Nov 19, 2024 10:30 AM NURSING NOTE: LOCAL TITLE: V15 PACT FACE TO FACE NOTE STL STANDARD TITLE: NURSING NOTE DATE OF NOTE: NOV 19, 2024@10:30 ENTRY DATE: NOV 19, 2024@10:30:35 AUTHOR: KALPANA ROJAS COSIGNER: URGENCY: STATUS: COMPLETED V15 PACT FACE TO FACE NOTE STL Has ADDENDA Provider Visit: Patient Identifiers : Full Name Date of Reason for visit: Established Follow-Up Mode of Arrival: Ambulatory Allergy Review: NIACIN Allergy list reviewed and remains current. Recent Vital Signs: Temperature: 97.9 F [36.6 C] (11/19/2024 10:25) Pulse: 67 (11/19/2024 10:25) Respiration: 20 (11/19/2024 10:25) B/P: 140/84 (11/19/2024 10:25) Pain: 1 (11/19/2024 10:25) Wt: 177.7 lb [80.60 kg] (11/19/2024 10:25) Ht: 69 in [175.3 cm] (10/26/2013 09:20) BMI: 26.3 POX: 94% (11/19/2024 10:25) PERSONAL HEALTH INVENTORY Notes: No data available for PHI note titles PERSONAL HEALTH INVENTORY - MAP: No data available for PHI MAP What matters most to you in your life right now? 's Response: Living another a year Would you like to discuss any personal problem, family problem, alcohol use, drug use, or a mental or emotional illness? No [facility] ([facility]), please select appointment type: Face to face: No- Are you interested in getting this done? No Contact provided Primary Care phone number and encouraged to call if any questions or concerns. Review that after hours nurse line [phone] and emergency room are available 16/06 for patient use. Contact verbalized good understanding. No notification required for this note. /luis/ KALPANA ROJAS REGISTERED NURSE, LINOTYPE OPERATOR Signed: 11/19/2024 10:33 11/19/2024 ADDENDUM STATUS: COMPLETED COVID-19 Immunization - L,N,P,PH,U: Patient received a prior dose of the Pfizer Monovalent vaccine. Documented: COVID-19 ([employer]), MRNA, LNP-S, PF, ARIELLE-SUCROSE, 30 MCG/0.3 ML (AGES 12+ YEARS) Historical Date Administered: Jul 25, 2024 Series: Booster Outside Location: [facility] Information Source: FROM PATIENT'S WRITTEN RECORD Influenza Immunization - L,N,P,PH,U: The patient has received the seasonal influenza vaccine for the current season at another location. Documented: INFLUENZA, UNSPECIFIED FORMULATION Historical Date Administered: Jul 25, 2024 Series: Complete Outside Location: [facility] Information Source: FROM PATIENT'S WRITTEN RECORD Alcohol Use Screen (AUDIT-C) - V: Alcohol Screen: SCREEN FOR ALCOHOL (AUDIT-C) An alcohol screening test (AUDIT-C) was negative (score=0). 1. How often did you have a drink containing alcohol in the past year? Consider a drink to be a 12 ounce can or bottle of regular beer, 8 ounces of malt liquor, a 5 ounce glass of table wine, or a 1.5 ounce shot of liquor (like scotch, gin, or vodka). Never 2. How many drinks containing alcohol did you have on a typical day when you were drinking in the past year? Response not required due to responses to other questions. 3. How often did you have six or more drinks on one occasion in the past year? Response not required due to responses to other questions. Depression Screening - V: Perform PHQ-2 A PHQ-2 screen was performed. The score was 0 which is a negative screen for depression. Over the past two weeks, how often have you been bothered by the following problems? 1. Little interest or pleasure in doing things Not at all 2. Feeling down, depressed, or hopeless Not at all Frail/Elderly Screen: ADL Screen - Wiseman Index of [place] in Activities of Daily Living Bathing: (2 Points) Receives assistance in bathing only one part of the body (such as back or leg) Dressing: (2 Points) Gets clothes and gets dressed without assistance, except for assistance with tying shoes. Toileting: (2 Points) Receives assistance in going to toilet room or in cleansing self or in arranging clothes after elimination or in use of night bedpan or commode. Transferring: (3 Points) Moves in and out of bed and in and out of chair without assistance (may be using object for support, such as cane or walker) Continence: (2 Points) Has occasional accidents or urination or bowels Feeding: (3 Points) Feeds self without assistance Total Score: 15 Points 18 = High (patient independent) 6 = Low (patient very dependent) IADL Screen - [place] Instrumental Activities of Daily Living Scale Ability to use telephone: (1 point) Operates Telephone on own initiative; looks up and dials numbers. Shopping: (0 points) Needs to be accompanied on any shopping trip. Food preparation: (0 points) Heats and serves prepared meals, or prepares meals but does not maintain adequate diet. Housekeeping: (1 points) Needs help with all home maintenance tasks. Laundry: (0 points) All laundry must be done by others. Mode of transportation: (0 points) Travel limited to taxi or automobile with assistance of another. Responsibility for own medications: (0 points) Takes responsibility if medication is prepared in advance in separate dosages. Ability to handle finances: (0 points) Incapable of handling money. Total score: 2 points 8 = High function, independent 0 = Low function, dependent Falls Screen: No falls within the past 12 months. Incontinence Screen: YES - Incontinence is a problem for this patient. Is urinary incontinence NEW for this patient? NO - Incontinence is NOT a new problem. What is the current treatment? Depends Homelessness/Food Insecurity Screen - DI,L,N,P,PH,PS,S,U: In the past 2 months, have you been living in stable housing that you own, rent, or stay in as part of a household? Yes - Living in stable housing. Are you worried or concerned that in the next 2 months you may NOT have stable housing that you own, rent, or stay in as part of a household? No - Not worried about housing near future The [place] reports the following: Within the past 12 months, you worried whether your food would run out before you got money to buy more. Never true Within the past 12 months, the food you bought just didn't last and you didn't have money to get more. Never true Learning Assessment: - * This patient's learning ABILITIES, BARRIERS to learning, CULTURAL and YAZIDI beliefs, and learning PREFERENCES were assessed. Following are findings of note: Patient reads well. 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 Adjustments made to address the identified barrier include: Write down and patient reads back instructions. LANGUAGE Patient reports that Luxembourgish is preferred language for healthcare. Patient has the following vision barrier(s) to consider when teaching: The following barrier has been identified:, Requires glasses/contacts for reading Adjustments made to address the identified barrier include: Assure patient has glasses/contacts for reading., Large print material will be utilized. Patient reports learning preference is to refer to handouts. Patient reports learning preference is attending one-to-one or group demonstrations. Tobacco Use Screening - AT,DE,L,M,N,P,PH,PS,RT,S,U: The patient has never smoked cigarettes. The patient has never used other types of tobacco. Tdap Immunization - L,N,P,PH,U: Administered: TDAP Date Administered: Nov 19, 2024 10:30 Series: Complete Top Screw: [employer] PASTEUR Lot: [id number] Exp Date: Jan 21, 2026 [facility]: [id number] Admin Route/Site: INTRAMUSCULAR/LEFT DELTOID Dosage: 0.5mL Vaccine Information Statement(s): TDAP (TETANUS, DIPHTHERIA, PERTUSSIS) VACCINE VIS Jun 29, 2021 ([place]) Order By: Kathia Kaba Administered By: Kalpana Rojas Vaccine Information Sheet (VIS) was given to the patient/caregiver, education regarding adverse reactions was discussed, as well as barriers to learning, if any, were acknowledged. /luis/ KALPANA ROJAS REGISTERED NURSE, LINOTYPE OPERATOR Signed: 11/19/2024 11:16 KALPANA ROJAS [facility]
--- OUTSIDE RECORDS SUMMARY | 2024-12-17 08:34 | XMS_ITS | Continuity of Care Document ---
Author Name [facility] Organization [facility] Care Team Providers Care Tax Technician Name Role Phone [facility] Unavailable Unavailable Problems Combined list of problems from Department of Defense and Veterans Affairs facilities. It does not include entries that were removed or entered in error. Problem Status Onset Date Problem Type Date of Resolution Comments Source AF - Atrial Fibrillation (SCT 01770383) Active Condition [facility] Benign hypertension (SNOMED CT 55361827) Active Condition [facility] Dementia Active Condition [facility] Diabetes Mellitus Type 2 (SCT 11228792) Active Condition [facility] Generalised aches and pains Active Condition [facility] H/O: cardiac pacemaker in situ (SNOMED CT 289313061) Active Condition [facility] Hearing loss (SNOMED CT 36514662) Active Condition [facility] Hyperlipidemia Active Condition [facility] Melanoma in situ Active Condition 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 Diagnosis: ICD-10-CM E11.9 Type 2 diabetes mellitus without complications Active Diagnosis [facility] Diagnosis: ICD-10-CM Z51.81 Encounter for therapeutic drug level monitoring Active Diagnosis [facility] Medications Combined list of outpatient medications from Department of Defense and Veterans Affairs facilities.Medications provided include 1) outpatient medications from the last 15 months, and 2) patient-reported medications. Medication Details Route Status Patient Instructions Prescription Expires Prescription Number Last Dispense Date Ordering Provider Order Date Order Qty Source ACETAMINOPH EN 500MG TAB TAKE TWO TABLETS BY MOUTH THREE TIMES A DAY NEEDED FOR PAIN CAUTION: DO NOT EXCEED 4000MG PER DAY ACETAMIN OPHEN (APAP) FROM ALL MEDS. ORAL ACTIVE 11/20/2025 [id number] Messi MCCOY 2023 200 [facility] ACETAMINOPH EN 500MG TAB TAKE TWO TABLETS BY MOUTH THREE TIMES A DAY NEEDED FOR PAIN CAUTION: DO NOT EXCEED 4000MG PER DAY ACETAMIN OPHEN (APAP) FROM ALL MEDS. ORAL DISCONT INUED 11/21/2024 [id number] RADHA KLEIN 2022 200 [facility] APIXABAN 5MG TAB TAKE ONE TABLET BY MOUTH TWICE A DAY FOR ANTICOAG ULATION ORAL DISCONT INUED (EDIT) 10/31/2024 [id number] VIC CORTEZ 2023 180 [facility] APIXABAN 5MG TAB TAKE ONE TABLET BY MOUTH TWICE A DAY FOR ANTICOAG ULATION ORAL 11/21/2024 [id number] 4 RADHA KLEIN 2022 180 [facility] ATORVASTATI N CA 40MG TAB TAKE ONE-HALF TABLET BY MOUTH EVERY EVENING FOR HIGH CHOLESTE ROL TO LOWER CHOLESTE ROL ORAL ACTIVE 10/21/2025 [id number] 4 GOLDY GANDHI 2023 45 [facility] ATORVASTATI N CA 40MG TAB TAKE ONE-HALF TABLET BY MOUTH EVERY EVENING FOR HIGH CHOLESTE ROL TO LOWER CHOLESTE ROL ORAL DISCONT INUED 11/21/2024 [id number] 4 RADHA KLEIN 2022 45 [facility] ATORVASTATI N CA 40MG TAB TAKE ONE-HALF TABLET BY MOUTH EVERY EVENING TO LOWER CHOLESTE ROL ORAL DISCONT INUED (EDIT) 02/20/2024 [id number] WILLIAM BONILLA SA 2022 45 [facility] DONEPEZIL HCL 10MG TAB TAKE ONE TABLET BY MOUTH ONCE A DAY FOR DEMENTIA (JUST BEFORE BEDTIME) ORAL ACTIVE 07/23/2025 [id number] 4 RADHA KLEIN 2023 90 [facility] DONEPEZIL HCL 10MG TAB TAKE ONE-HALF TABLET BY MOUTH AT BEDTIME FOR 30 DAYS, THEN TAKE ONE TABLET AT BEDTIME FOR DEMENTIA (JUST BEFORE BEDTIME) ORAL DISCONT INUED (EDIT) 07/27/2024 [id number] 4 RADHA KLEIN 2023 75 [facility] LISINOPRIL 5MG TAB TAKE ONE-HALF TABLET BY MOUTH ONCE A DAY FOR HEART OR BLOOD PRESSURE ORAL SUSPEND ED 10/23/2025 [id number] RADHA KLEIN 2023 45 [facility] LISINOPRIL 5MG TAB TAKE ONE-HALF TABLET BY MOUTH ONCE A DAY FOR HEART OR BLOOD PRESSURE ORAL DISCONT INUED 11/21/2024 [id number] 4 RADHA KLEIN 2022 45 [facility] METFORMIN HCL 500MG 24HR TAB,SA TAKE ONE TABLET BY MOUTH ONCE A DAY FOR BLOOD SUGAR CONTROL. TAKE WITH FOOD. AVOID ALCOHOL. DISCONTI NUE BEFORE GETTING XRAY DYE. ORAL ACTIVE 10/21/2025 [id number] 5 GOLDY GANDHI 2023 30 [facility] METFORMIN HCL 500MG 24HR TAB,SA TAKE ONE TABLET BY MOUTH ONCE A DAY FOR BLOOD SUGAR CONTROL. TAKE WITH FOOD. AVOID ALCOHOL. DISCONTI NUE BEFORE GETTING XRAY DYE. ORAL DISCONT INUED 11/21/2024 [id number] RADHA KLEIN 2023 30 [facility] METFORMIN HCL 500MG 24HR TAB,SA TAKE ONE TABLET BY MOUTH ONCE A DAY FOR BLOOD SUGAR CONTROL. TAKE WITH FOOD. AVOID ALCOHOL. DISCONTI NUE BEFORE GETTING XRAY DYE. ORAL DISCONT INUED 11/21/2024 [id number] 4 RADHA KLEIN 2023 90 [facility] METFORMIN HCL 500MG 24HR TAB,SA TAKE ONE TABLET BY MOUTH ONCE A DAY FOR BLOOD SUGAR CONTROL. TAKE WITH FOOD. AVOID ALCOHOL. DISCONTI NUE BEFORE GETTING XRAY DYE. ORAL DISCONT INUED 04/12/2024 [id number] 3 WILLIAM BONILLA SA 2022 90 [facility] METOPROLOL TARTRATE 50MG TAB TAKE ONE-HALF TABLET BY MOUTH TWICE A DAY FOR HEART/BL OOD PRESSURE . TAKE WITH OR IMMEDIAT CONOR FOLLOWIN G FOOD. ORAL ACTIVE 10/21/2025 [id number] 5 GOLDY GANDHI 2024 90 [facility] METOPROLOL TARTRATE 50MG TAB TAKE ONE-HALF TABLET BY MOUTH TWICE A DAY FOR HEART/BL OOD PRESSURE . TAKE WITH OR IMMEDIAT CONOR FOLLOWIN G FOOD. ORAL DISCONT INUED 11/21/2024 [id number] RADHA KLEIN 2022 90 [facility] METOPROLOL TARTRATE 50MG TAB TAKE ONE-HALF TABLET BY MOUTH TWICE A DAY FOR HEART/BL OOD PRESSURE . TAKE WITH OR IMMEDIAT CONOR FOLLOWIN G FOOD. ORAL DISCONT INUED (EDIT) 02/20/2024 [id number] 3 WILLIAM BONILLA SA 2022 90 [facility] OXYBUTYNIN CL 5MG TAB TAKE ONE TABLET BY MOUTH THREE TIMES A DAY FOR OVERACTI VE BLADDER ORAL ACTIVE 04/29/2025 [id number] 4 RADHA KLEIN 2023 270 [facility] Allergies, Adverse Reactions, Alerts Combined list of allergies from Department of Defense and Veterans Affairs facilities. It does not include entries that were removed or entered in error. Substance Category Reaction Severity Reaction type Status Date Reported Comments Source NIACIN Propensity to adverse reactions to drug (finding) [place] active 05/22/2023 [facility] Immunizations Combined list of available immunizations from the Department of Defense and Veterans Affairs facilities. Immunization Series Date Given Administered By Site Reaction Lot Number CVX Code Drug Entry Table Operator Status Comments Source TDAP 2023 KALPANA ROJAS LEFT DELTO ID [id number] 115 complet [facility] COVID-19 (Respectance), MRNA, LNP-S, PF, ARIELLE-SUCROSE, 30 MCG/0.3 ML (AGES 12+ YEARS) 2023 309 complet [facility] INFLUENZA, UNSPECIFIED FORMULATION 2023 88 complet [facility] DIVISIO N INFLUENZA, UNSPECIFIED FORMULATION 2022 88 complet [facility]IS[facility] N ZOSTER RECOMBINANT 2 2022 PARK MCGILL L RIGHT DELTO ID [id number] 187 complet ed ADJUVANT [id number] 05/10/24 [facility] INFLUENZA VACCINE, QUADRIVALENT, ADJUVANTED 2021 205 complet [facility] ZOSTER RECOMBINANT 1 2021 187 complet [facility] COVID-19 (Respectance), MRNA, LNP-S, PF, 30 MCG/0.3 ML DOSE 3 2020 208 complet ed [facility] INFLUENZA, UNSPECIFIED FORMULATION 2020 88 complet [facility] DIVIS[facility] N INFLUENZA, HIGH-DOSE, QUADRIVALENT 2 2020 [facility] PPV23 2020 [facility] ([facility]ance), MRNA, LNP-S, PF, 30 MCG/0.3 ML DOSE 2 2020 208 complet [facility] N COVID-19 (PFIZER), MRNA, LNP-S, PF, 30 MCG/0.3 ML DOSE 1 2020 208 complet ed [facility] INFLUENZA, HIGH DOSE SEASONAL 1 2016 135 complet ed [facility] ZOSTER LIVE 2013 121 complet ed [facility] ZOSTER LIVE 1 2013 121 complet ed [facility] PNEUMOCOCCAL CONJUGATE PCV 13 2012 133 complet ed Immunizat ion Record [facility] TD(ADULT) UNSPECIFIED FORMULATION 2011 139 complet ed [facility] TD(ADULT) UNSPECIFIED FORMULATION 2007 139 complet ed Left Deltoid [facility] PNEUMOCOCCAL, UNSPECIFIED FORMULATION 2005 109 complet ed [facility] Results Combined list of recent chemistry, hematology and other laboratory results from Department of Defense and Veterans Affairs, ranging from 15 months to all on record, depending upon the facility. Order Name Results Value Reference Range Date Interpretation Specimen Comments Source VITAMIN D, 25-HYDROXY 25-HYDROXYV ITAMIN D3 [MASS/VOLUM E] IN SERUM OR PLASMA 32.8 ng/mL 30 - 96 11/19 Specimen Type: SERUM No comment entered. Ordering Provider: KATHIA MCCOY Report Released Date/Time: Nov 19, 2024 11:20 AM Reporting Lab: [facility] [address] [address] Performing Lab: [facility] [address] [place] [phone] [facility] CBC LEUKOCYTES [#/VOLUME] IN BLOOD BY AUTOMATED COUNT 7.4 10*3/u L 3.6 - 11.2 11/19 Specimen Type: BLOOD No comment entered. Ordering Provider: KATHIA MCCOY Report Released Date/Time: Nov 19, 2024 11:20 AM Reporting Lab: [facility] [address] [place] [phone] Performing Lab: [facility] [address] [address] [facility] CBC ERYTHROCYTE S [#/VOLUME] IN BLOOD BY AUTOMATED COUNT 4.79 10*6/u L 4.10 - 5.70 11/19 Specimen Type: BLOOD No comment entered. Ordering Provider: KATHIA MCCOY Report Released Date/Time: Nov 19, 2024 11:20 AM Reporting Lab: [address] [address] Performing Lab: [address] [address] [facility] CBC HEMOGLOBIN [MASS/VOLUM E] IN BLOOD 13.7 g/dL 13.1 - 16.8 11/19 Specimen Type: BLOOD No comment entered. Ordering Provider: KATHIA MCCOY Report Released Date/Time: Nov 19, 2024 11:20 AM Reporting Lab: [address] [address] Performing Lab: [address] [address] [facility] CBC HEMATOCRIT [VOLUME FRACTION] OF BLOOD 42.1 38.2 - 48.4 11/19 Specimen Type: BLOOD No comment entered. Ordering Provider: KATHIA MCCOY Report Released Date/Time: Nov 19, 2024 11:20 AM Reporting Lab: [address] [address] Performing Lab: [address] [address] [facility] CBC MCV [ENTITIC VOLUME] BY AUTOMATED COUNT 87.9 fL 80.0 - 100.0 11/19 Specimen Type: BLOOD No comment entered. Ordering Provider: KATHIA MCCOY Report Released Date/Time: Nov 19, 2024 11:20 AM Reporting Lab: [address] [address] Performing Lab: [address] [place] [address] [facility] CBC MCH [ENTITIC MASS] BY AUTOMATED COUNT 28.6 pg 27.0 - 34.0 11/19 Specimen Type: BLOOD No comment entered. Ordering Provider: KATHIA MCCOY Report Released Date/Time: Nov 19, 2024 11:20 AM Reporting Lab: [address] [address] Performing Lab: [address] [address] [facility] CBC MCHC [MASS/VOLUM E] BY AUTOMATED COUNT 32.5 g/dL 33.0 - 36.0 11/19 L Specimen Type: BLOOD No comment entered. Ordering Provider: KATHIA MCCOY Report Released Date/Time: Nov 19, 2024 11:20 AM Reporting Lab: [address] [address] Performing Lab: [address] [address] [facility] CBC PLATELETS [#/VOLUME] IN BLOOD BY AUTOMATED COUNT 216 10*3/u L 150 - 400 11/19 Specimen Type: BLOOD No comment entered. Ordering Provider: KATHIA MCCOY Report Released Date/Time: Nov 19, 2024 11:20 AM Reporting Lab: [address] [address] Performing Lab: [address] [address] [facility] CBC PLATELET MEAN VOLUME [ENTITIC VOLUME] IN BLOOD BY AUTOMATED COUNT 10.2 fL 7.5 - 11.2 11/19 Specimen Type: BLOOD No comment entered. Ordering Provider: KATHIA MCCOY Report Released Date/Time: Nov 19, 2024 11:20 AM Reporting Lab: [address] [address] Performing Lab: [address] [address] [facility] CBC ERYTHROCYTE DISTRIBUTIO N WIDTH [RATIO] BY AUTOMATED COUNT 12.0 11.8 - 15.1 11/19 Specimen Type: BLOOD No comment entered. Ordering Provider: KATHIA MCCOY Report Released Date/Time: Nov 19, 2024 11:20 AM Reporting Lab: [facility] [address] [facility] [address] Performing Lab: [facility] [address] [facility] [address] [facility] CBC LYMPHOCYTES /100 LEUKOCYTES IN BLOOD BY AUTOMATED COUNT 29 11/19 Specimen Type: BLOOD No comment entered. Ordering Provider: KATHIA MCCOY Report Released Date/Time: Nov 19, 2024 11:20 AM Reporting Lab: [facility] [address] [phone] Performing Lab: [facility] [address] [place] [phone] [facility] CBC MONOCYTES/1 00 LEUKOCYTES IN BLOOD BY AUTOMATED COUNT 7 11/19 Specimen Type: BLOOD No comment entered. Ordering Provider: KATHIA MCCOY Report Released Date/Time: Nov 19, 2024 11:20 AM Reporting Lab: [facility] [address] [phone] Performing Lab: [facility] [address] [facility] [address] [facility] CBC NEUTROPHILS /100 LEUKOCYTES IN BLOOD BY AUTOMATED COUNT 58 11/19 Specimen Type: BLOOD No comment entered. Ordering Provider: KATHIA MCCOY Report Released Date/Time: Nov 19, 2024 11:20 AM Reporting Lab: [facility] [address] [place] [address] Performing Lab: [facility] [address] [place] [phone] [facility] CBC EOSINOPHILS /100 LEUKOCYTES IN BLOOD BY AUTOMATED COUNT 5 11/19 Specimen Type: BLOOD No comment entered. Ordering Provider: KATHIA MCCOY Report Released Date/Time: Nov 19, 2024 11:20 AM Reporting Lab: [facility] [address] [facility] [address] Performing Lab: [facility] [address] [place] [phone] [facility] CBC BASOPHILS/1 00 LEUKOCYTES IN BLOOD BY AUTOMATED COUNT 1 11/19 Specimen Type: BLOOD No comment entered. Ordering Provider: KATHIA MCCOY Report Released Date/Time: Nov 19, 2024 11:20 AM Reporting Lab: [facility] [address] [place] [phone] Performing Lab: [address] [address] [facility] CBC LYMPHOCYTES [#/VOLUME] IN BLOOD BY AUTOMATED COUNT 2.15 10*3/u L 0.77 - 4.50 11/19 Specimen Type: BLOOD No comment entered. Ordering Provider: KATHIA MCCOY Report Released Date/Time: Nov 19, 2024 11:20 AM Reporting Lab: [address] [address] Performing Lab: [address] [address] [facility] CBC MONOCYTES [#/VOLUME] IN BLOOD BY AUTOMATED COUNT 0.55 10*3/u L 0.19 - 0.80 11/19 Specimen Type: BLOOD No comment entered. Ordering Provider: KATHIA MCCOY Report Released Date/Time: Nov 19, 2024 11:20 AM Reporting Lab: [facility] [address] [place] [phone] Performing Lab: [address] [address] [facility] CBC NEUTROPHILS [#/VOLUME] IN BLOOD BY AUTOMATED COUNT 4.29 10*3/u L 2.10 - 8.00 11/19 Specimen Type: BLOOD No comment entered. Ordering Provider: KATHIA MCCOY Report Released Date/Time: Nov 19, 2024 11:20 AM Reporting Lab: [facility] [address] [place] [phone] Performing Lab: [address] [address] [facility] CBC EOSINOPHILS [#/VOLUME] IN BLOOD BY AUTOMATED COUNT 0.37 10*3/u L 0.00 - 0.60 11/19 Specimen Type: BLOOD No comment entered. Ordering Provider: KATHIA MCCOY Report Released Date/Time: Nov 19, 2024 11:20 AM Reporting Lab: [address] [address] Performing Lab: [address] [phone] [facility] CBC BASOPHILS [#/VOLUME] IN BLOOD BY AUTOMATED COUNT 0.06 10*3/u L 0.00 - 0.20 11/19 Specimen Type: BLOOD No comment entered. Ordering Provider: KATHIA MCCOY Report Released Date/Time: Nov 19, 2024 11:20 AM Reporting Lab: [address] [address] Performing Lab: [address] [phone] [facility] COMPREHENS JONNY METABOLIC PANEL CREATININE [MASS/VOLUM E] IN SERUM OR PLASMA 0.76 mg/dL 0.7 - 1.3 11/19 Specimen Type: PLASMA Comment: No hemolysis noted. Ordering Provider: KATHIA MCCOY Report Released Date/Time: Nov 19, 2024 11:20 AM Reporting Lab: [address] [address] Performing Lab: [address] [address] [facility] COMPREHENS JONNY METABOLIC PANEL UREA NITROGEN [MASS/VOLUM E] IN SERUM OR PLASMA 17.3 mg/dL 9.0 - 25.0 11/19 Specimen Type: PLASMA Comment: No hemolysis noted. Ordering Provider: KATHIA MCCOY Report Released Date/Time: Nov 19, 2024 11:20 AM Reporting Lab: [facility] [address] [facility] [phone] Performing Lab: [facility] [address] [place] [phone] [facility] COMPREHENS JONNY METABOLIC PANEL GLUCOSE [MASS/VOLUM E] IN SERUM OR PLASMA 141 mg/dL 72 - 99 11/19 H Specimen Type: PLASMA Comment: No hemolysis noted. Ordering Provider: KATHIA MCCOY Report Released Date/Time: Nov 19, 2024 11:20 AM Reporting Lab: [facility] [address] [facility] [address] Performing Lab: [address] [address] [facility] COMPREHENS JONNY METABOLIC PANEL SODIUM [MOLES/VOLU ME] IN SERUM OR PLASMA 140 meq/L 136 - 145 11/19 Specimen Type: PLASMA Comment: No hemolysis noted. Ordering Provider: KATHIA MCCOY Report Released Date/Time: Nov 19, 2024 11:20 AM Reporting Lab: [place] [address] [facility] [address] Performing Lab: [facility] [address] [place] [phone] [facility] COMPREHENS JONNY METABOLIC PANEL POTASSIUM [MOLES/VOLU ME] IN SERUM OR PLASMA 4.7 meq/L 3.5 - 5 11/19 Specimen Type: PLASMA Comment: No hemolysis noted. Ordering Provider: KATHIA MCCOY Report Released Date/Time: Nov 19, 2024 11:20 AM Reporting Lab: [facility] [address] [facility] [address] Performing Lab: [facility] [address] [place] [phone] [facility] COMPREHENS JONNY METABOLIC PANEL CHLORIDE [MOLES/VOLU ME] IN SERUM OR PLASMA 108 meq/L 98 - 107 11/19 H Specimen Type: PLASMA Comment: No hemolysis noted. Ordering Provider: KATHIA MCCOY Report Released Date/Time: Nov 19, 2024 11:20 AM Reporting Lab: [facility] [address] [facility] [address] Performing Lab: [facility] [address] [facility] [address] [facility] COMPREHENS JONNY METABOLIC PANEL CARBON DIOXIDE, TOTAL [MOLES/VOLU ME] IN SERUM OR PLASMA 27 meq/L 22 - 31 11/19 Specimen Type: PLASMA Comment: No hemolysis noted. Ordering Provider: KATHIA MCCOY Report Released Date/Time: Nov 19, 2024 11:20 AM Reporting Lab: [place] [address] [facility] [address] Performing Lab: [place] [address] [facility] [address] [facility] COMPREHENS JONNY METABOLIC PANEL CALCIUM [MASS/VOLUM E] IN SERUM OR PLASMA 9.4 mg/dL 8.4 - 10.4 11/19 Specimen Type: PLASMA Comment: No hemolysis noted. Ordering Provider: KATHIA MCCOY Report Released Date/Time: Nov 19, 2024 11:20 AM Reporting Lab: [place] [address] [facility] [phone] Performing Lab: [place] [address] [facility] [address] [facility] COMPREHENS JONNY METABOLIC PANEL PROTEIN [MASS/VOLUM E] IN SERUM OR PLASMA 7.4 g/dL 6 - 8.6 11/19 Specimen Type: PLASMA Comment: No hemolysis noted. Ordering Provider: KATHIA MCCOY Report Released Date/Time: Nov 19, 2024 11:20 AM Reporting Lab: [facility] [employer] [facility] [address] Performing Lab: [address] [address] [facility] COMPREHENS JONNY METABOLIC PANEL ALBUMIN [MASS/VOLUM E] IN SERUM OR PLASMA 4.4 g/dL 3.4 - 5 11/19 Specimen Type: PLASMA Comment: No hemolysis noted. Ordering Provider: KATHIA MCCOY Report Released Date/Time: Nov 19, 2024 11:20 AM Reporting Lab: [facility] [address] [place], [place] [phone] Performing Lab: [facility] [address] [place] [phone] [place] [address] [facility] COMPREHENS JONNY METABOLIC PANEL BILIRUBIN.T OTAL [MASS/VOLUM E] IN SERUM OR PLASMA 0.7 mg/dL 0.2 - 1.2 11/19 Specimen Type: PLASMA Comment: No hemolysis noted. Ordering Provider: KATHIA MCCOY Report Released Date/Time: Nov 19, 2024 11:20 AM Reporting Lab: [place] [address] Performing Lab: [address] [phone] [place] [address] [facility] COMPREHENS JONNY METABOLIC PANEL ALKALINE PHOSPHATASE [ENZYMATIC ACTIVITY/VO LUME] IN SERUM OR PLASMA 80 U/L 40 - 150 11/19 Specimen Type: PLASMA Comment: No hemolysis noted. Ordering Provider: KATHIA MCCOY Report Released Date/Time: Nov 19, 2024 11:20 AM Reporting Lab: [facility] [address] [place], [place] [phone] Performing Lab: [address] [phone] [place] [address] [facility] COMPREHENS JONNY METABOLIC PANEL ASPARTATE AMINOTRANSF ERASE [ENZYMATIC ACTIVITY/VO LUME] IN SERUM OR PLASMA 20 U/L 5 - 34 11/19 Specimen Type: PLASMA Comment: No hemolysis noted. Ordering Provider: KATHIA MCCOY Report Released Date/Time: Nov 19, 2024 11:20 AM Reporting Lab: [facility] [address] [place] [phone] Performing Lab: [facility] [address] [place] [phone] [facility] COMPREHENS JONNY METABOLIC PANEL ALANINE AMINOTRANSF ERASE [ENZYMATIC ACTIVITY/VO LUME] IN SERUM OR PLASMA 21 U/L 8 - 40 11/19 Specimen Type: PLASMA Comment: No hemolysis noted. Ordering Provider: KATHIA MCCOY Report Released Date/Time: Nov 19, 2024 11:20 AM Reporting Lab: [facility] [address] [place] [id number] Performing Lab: [address] [address] [facility] COMPREHENS JONNY METABOLIC PANEL GLOMERULAR FILTRATION RATE/1.73 SQ M.PREDICTED [VOLUME RATE/AREA] IN SERUM, PLASMA OR BLOOD BY CREATININE- BASED FORMULA (CKD-EPI 2020) 87.5 60 11/19 Specimen Type: PLASMA Comment: No hemolysis noted. Ordering Provider: KATHIA MCCOY Report Released Date/Time: Nov 19, 2024 11:20 AM Reporting Lab: [address] [id number] Performing Lab: [address] [id number] [facility] HGA1C HEMOGLOBIN A1C/HEMOGLO BIN.TOTAL IN BLOOD 7.4 4.0 - 6.0 11/19 H Specimen Type: BLOOD No comment entered. Ordering Provider: KATHIA MCCOY Report Released Date/Time: Nov 19, 2024 11:20 AM Reporting Lab: [address] [phone] Performing Lab: [facility] [address] [place] [phone] [facility] LIPID PANEL (STL) CHOLESTEROL [MASS/VOLUM E] IN SERUM OR PLASMA 145 mg/dL 0 - 200 11/19 Specimen Type: PLASMA Comment: No hemolysis noted. Ordering Provider: KATHIA MCCOY Report Released Date/Time: Nov 19, 2024 11:20 AM Reporting Lab: [address] [phone] Performing Lab: [address] [phone] [facility] LIPID PANEL (STL) TRIGLYCERID E [MASS/VOLUM E] IN SERUM OR PLASMA 106 mg/dL 0 - 150 11/19 Specimen Type: PLASMA Comment: No hemolysis noted. Ordering Provider: KATHIA MCCOY Report Released Date/Time: Nov 19, 2024 11:20 AM Reporting Lab: [address] [address] Performing Lab: [place] [phone] [facility] LIPID PANEL (STL) CHOLESTEROL IN LDL [MASS/VOLUM E] IN SERUM OR PLASMA BY CALCULATION 94 mg/dL 11/19 Specimen Type: PLASMA Comment: No hemolysis noted. Ordering Provider: KATHIA MCCOY Report Released Date/Time: Nov 19, 2024 11:20 AM Reporting Lab: [place] [id number] Performing Lab: [address] [facility] LIPID PANEL (STL) CHOLESTEROL IN HDL [MASS/VOLUM E] IN SERUM OR PLASMA 30 mg/dL 40 11/19 L Specimen Type: PLASMA Comment: No hemolysis noted. Ordering Provider: KATHIA MCCOY Report Released Date/Time: Nov 19, 2024 11:20 AM Reporting Lab: [place] [phone] Performing Lab: [address] [phone] [place] [address] [facility] MICRAL/CRE AT PROFILE (STL) ALBUMIN [MASS/VOLUM E] IN URINE <5.0mg /L 11/19 Specimen Type: URINE Comment: uALB/CREAT Ratio Unable to be calculated Unable to calculate due to Microalbumin < 5.0 mg/L Ordering Provider: KATHIA MCCOY Report Released Date/Time: Nov 19, 2024 11:20 AM Reporting Lab: [place] [phone] Performing Lab: [address] [place] [address] [facility] MICRAL/CRE AT PROFILE (STL) ALBUMIN/CRE ATININE [MASS RATIO] IN URINE commen tmg/g 0 - 29 11/19 Specimen Type: URINE Comment: uALB/CREAT Ratio Unable to be calculated Unable to calculate due to Microalbumin < 5.0 mg/L Ordering Provider: KATHIA MCCOY Report Released Date/Time: Nov 19, 2024 11:20 AM Reporting Lab: [facility] [address] [place] [phone] Performing Lab: [address] [phone] [facility] MICRAL/CRE AT PROFILE (STL) CREATININE [MASS/VOLUM E] IN URINE 73.2 mg/dL 63 - 166 11/19 Specimen Type: URINE Comment: uALB/CREAT Ratio Unable to be calculated Unable to calculate due to Microalbumin < 5.0 mg/L Ordering Provider: KATHIA MCCOY Report Released Date/Time: Nov 19, 2024 11:20 AM Reporting Lab: [facility] [address] [place] [phone] Performing Lab: [place] [phone] [facility] URINALYSIS (STL-PB) COLOR OF URINE Light- Yellow 11/19 Specimen Type: URINE No comment entered. Ordering Provider: KATHIA MCCOY Report Released Date/Time: Nov 19, 2024 11:20 AM Reporting Lab: [facility] [address] [place] [phone] Performing Lab: [address] [facility] URINALYSIS (STL-PB) BILIRUBIN.T OTAL [PRESENCE] IN URINE BY TEST STRIP Negati vemg/d L 11/19 Specimen Type: URINE No comment entered. Ordering Provider: KATHIA MCCOY Report Released Date/Time: Nov 19, 2024 11:20 AM Reporting Lab: [facility] [address] [facility] [address] Performing Lab: [address] [phone] [facility] URINALYSIS (STL-PB) PH OF URINE BY TEST STRIP 6.5 5.0 - 8.0 11/19 Specimen Type: URINE No comment entered. Ordering Provider: KATHIA MCCOY Report Released Date/Time: Nov 19, 2024 11:20 AM Reporting Lab: [place] [address] [facility] [address] Performing Lab: [address] [address] [facility] URINALYSIS (STL-PB) LEUKOCYTES [#/AREA] IN URINE SEDIMENT BY MICROSCOPY HIGH POWER FIELD <1/[HP F] 0 - 5 11/19 Specimen Type: URINE No comment entered. Ordering Provider: KATHIA MCCOY Report Released Date/Time: Nov 19, 2024 11:20 AM Reporting Lab: [address] [phone] Performing Lab: [address] [phone] [facility] URINALYSIS (STL-PB) ERYTHROCYTE S [#/VOLUME] IN URINE SEDIMENT BY MICROSCOPY HIGH POWER FIELD <1/[HP F] 0 - 5 11/19 Specimen Type: URINE No comment entered. Ordering Provider: KATHIA MCCOY Report Released Date/Time: Nov 19, 2024 11:20 AM Reporting Lab: [address] [phone] Performing Lab: [address] [phone] [facility] URINALYSIS (STL-PB) APPEARANCE OF URINE Clear 11/19 Specimen Type: URINE No comment entered. Ordering Provider: KATHIA MCCOY Report Released Date/Time: Nov 19, 2024 11:20 AM Reporting Lab: [facility] [address] [facility] [address] Performing Lab: [facility] [address] [place] [phone] [facility] URINALYSIS (STL-PB) NITRITE [PRESENCE] IN URINE BY TEST STRIP Negati vemg/d L 11/19 Specimen Type: URINE No comment entered. Ordering Provider: KATHIA MCCOY Report Released Date/Time: Nov 19, 2024 11:20 AM Reporting Lab: [facility] [address] [place] [phone] Performing Lab: [address] [phone] [place] [address] [facility] URINALYSIS (STL-PB) MUCUS [PRESENCE] IN URINE SEDIMENT BY LIGHT MICROSCOPY RARE/[ LPF] 11/19 Specimen Type: URINE No comment entered. Ordering Provider: KATHIA MCCOY Report Released Date/Time: Nov 19, 2024 11:20 AM Reporting Lab: [facility] [address] [place] [phone] Performing Lab: [address] [phone] [facility] URINALYSIS (STL-PB) URATE CRYSTALS AMORPHOUS [PRESENCE] IN URINE SEDIMENT BY LIGHT MICROSCOPY OCC/[H PF] 11/19 Specimen Type: URINE No comment entered. Ordering Provider: KATHIA MCCOY Report Released Date/Time: Nov 19, 2024 11:20 AM Reporting Lab: [facility] [address] [place] [phone] Performing Lab: [facility] [address] [place] [phone] [facility] URINALYSIS (L-PB) GLUCOSE [MASS/VOLUM E] IN URINE BY TEST STRIP Normal mg/dL 11/19 Specimen Type: URINE No comment entered. Ordering Provider: KATHIA MCCOY Report Released Date/Time: Nov 19, 2024 11:20 AM Reporting Lab: [facility] [address] [place] [phone] Performing Lab: [facility] [address] [place] [phone] [facility] URINALYSIS (STL-PB) PROTEIN [MASS/VOLUM E] IN URINE BY TEST STRIP 50 mg/dL 11/19 H Specimen Type: URINE No comment entered. Ordering Provider: KATHIA MCCOY Report Released Date/Time: Nov 19, 2024 11:20 AM Reporting Lab: [address] [phone] Performing Lab: [address] [phone] [facility] URINALYSIS (STL-PB) URN.UROBILI NOGEN Normal mg/dL 11/19 Specimen Type: URINE No comment entered. Ordering Provider: KATHIA MCCOY Report Released Date/Time: Nov 19, 2024 11:20 AM Reporting Lab: [address] [phone] Performing Lab: [address] [phone] [place] [address] [facility] URINALYSIS (STL-PB) HEMOGLOBIN [MASS/VOLUM E] IN URINE BY TEST STRIP Negati vemg/d L 11/19 Specimen Type: URINE No comment entered. Ordering Provider: KATHIA MCCOY Report Released Date/Time: Nov 19, 2024 11:20 AM Reporting Lab: [address] [phone] Performing Lab: [address] [phone] [place] [address] [facility] URINALYSIS (STL-PB) KETONES [MASS/VOLUM E] IN URINE BY TEST STRIP Negati vemg/d L 11/19 Specimen Type: URINE No comment entered. Ordering Provider: KATHIA MCCOY Report Released Date/Time: Nov 19, 2024 11:20 AM Reporting Lab: [facility] [address] [facility] [phone] Performing Lab: [address] [address] [facility] URINALYSIS (STL-PB) URN.LEUK.ES T. Negati vemg/d L 11/19 Specimen Type: URINE No comment entered. Ordering Provider: KATHIA MCCOY Report Released Date/Time: Nov 19, 2024 11:20 AM Reporting Lab: [place] [address] [facility] [phone] Performing Lab: [place] [phone] [place] [address] [facility] URINALYSIS (STL-PB) SPECIFIC GRAVITY OF URINE 1.020 11/19 Specimen Type: URINE No comment entered. Ordering Provider: KATHIA MCCOY Report Released Date/Time: Nov 19, 2024 11:20 AM Reporting Lab: [address] [address] Performing Lab: [address] [phone] [place] [address] [facility]OC TSH (MA-PB) THYROTROPIN [UNITS/VOLU ME] IN SERUM OR PLASMA 0.928 u[IU]/ mL 0.47 - 5 11/19 Specimen Type: SERUM No comment entered. Ordering Provider: KATHIA MCCOY Report Released Date/Time: Nov 19, 2024 11:20 AM Reporting Lab: [place] [address] [facility] [address] Performing Lab: [place] [phone] [facility] HGA1C HEMOGLOBIN A1C/HEMOGLO BIN.TOTAL IN BLOOD 6.9 4.0 - 6.0 11/25 H Specimen Type: BLOOD No comment entered. Ordering Provider: MADELIN KLEIN Report Released Date/Time: Nov 21, 2023 03:06 PM Reporting Lab: [place] [address] [place] [address] Performing Lab: [facility] [address] [facility] [address] [facility] MICRAL/CRE AT PROFILE (STL) ALBUMIN [MASS/VOLUM E] IN URINE 11.4 mg/L 11/25 Specimen Type: URINE No comment entered. Ordering Provider: MADELIN KLEIN Report Released Date/Time: Nov 21, 2023 03:06 PM Reporting Lab: [facility] [address] [place] [phone] Performing Lab: [address] [phone] [facility] MICRAL/CRE AT PROFILE (STL) ALBUMIN/CRE ATININE [MASS RATIO] IN URINE 6 mg/g 0 - 29 11/25 Specimen Type: URINE No comment entered. Ordering Provider: MADELIN KLEIN Report Released Date/Time: Nov 21, 2023 03:06 PM Reporting Lab: [facility] [employer] [facility] [phone] Performing Lab: [address] [address] [facility] MICRAL/CRE AT PROFILE (STL) CREATININE [MASS/VOLUM E] IN URINE 197.2 mg/dL 63 - 166 11/25 H Specimen Type: URINE No comment entered. Ordering Provider: MADELIN KLEIN Report Released Date/Time: Nov 21, 2023 03:06 PM Reporting Lab: [facility] [employer] [facility] [address] Performing Lab: [address] [address] [facility] Vital Signs Combined list of inpatient and outpatient Vital Signs from Department of Defense and Veterans Affairs, ranging from 12 months to all on record, depending upon the facility. Vital Sign Value Date Comments Source SYSTOLIC BLOOD PRESSURE 147 11/19/2024 10:25:08 [facility] DIASTOLIC BLOOD PRESSURE 82 11/19/2024 10:25:08 [facility] PULSE OXIMETRY 94 11/19[facility]2024 [facility] WEIGHT 177.7 11/19/2024 10:25:08 [facility] [place] [facility] BMI 26kg/m2 11/19/2024 10:25:08 [facility] [place] [facility] PAIN 1 11/19/2024 10:25:08 [facility] Francia [facility] TEMPERATURE 97.9 11/19/2024 10:25:08 [facility] PULSE 67 11/19/2024 10:25:08 [facility] Francia [facility] RESPIRATION 20 11/19/2024 10:25:08 [facility] Encounters Combined list of: 1) Encounters from Department of [facility] facilities going back up to thelast 18 months. 2) Encounters from the Department of [facility] facilities going back up to 280 months. Location Location Details Encounter Type Encounter Number Reason For Visit Attending Provider ADM Date DC Date Status Disposition Source [facility] Outpatient Encounter [id number] 09/24 [facility] Outpatient Encounter [id number] 10/14 [facility] Outpatient Encounter [id number] 10/27 [facility] Outpatient Encounter [id number] 10/29 [facility] HC PRO PHONE CALL 5-10 MIN [id number] Diagnos is: ICD-10- CM Z51.81 Encount er for therape utic drug level monitor ing<br/ > THAD CORTEZ 10/31 [facility] N [facility] Outpatient Encounter [id number] 11/21 [facility] OFFICE O/P EST MOD 30-39 MIN [id number] Diagnos is: ICD-10- CM E11.9 Type 2 diabete s mellitu s without complic ations< br/> LATOYA,T ODD 11/21 [facility] Outpatient Encounter [id number] LATOYA,T ODD 11/28 [facility] FLU IMMUNIZE ORDER/ADMI N [id number] Diagnos is: ICD-10- CM Z23 Encount er for immuniz ation<b r/> YADY KNIGHT RA 12/02 [facility] Outpatient Encounter [id number] VANESSA WOOD 04/28 [facility] Outpatient Encounter [id number] PB HAILE 04/29 [facility] Outpatient Encounter [id number] 06/17 [facility] Outpatient Encounter [id number] VANESSA WOOD IDGET PILI 07/22 [facility] Outpatient Encounter [id number] VANESSA WOOD IDGET PILI 07/22 [facility] Outpatient Encounter [id number] VANESSA WOOD IDGET PILI 07/22 [facility] Outpatient Encounter [id number] 07/25 [facility] Outpatient Encounter [id number] 08/02 [facility] HC PRO PHONE CALL 11-20 MIN [id number] Diagnos is: ICD-10- CM Z91.138 Patient 's uninten t undrdos e of meds regimen for oth reason< br/> BRINA PENALOZA C 08/05 [facility] En[facility] [id number] BRINA PENALOZA C 08/30 [facility] Outpatient Encounter [id number] Diagnos is: ICD-10- CM Z02.9 Encount er for adminis trative examina tions, unspeci fied
KLEIN,T ODD 09/27 [facility] En[facility] [id number] 09/27 [facility] Outpatient Encounter [id number] ZITA DESAI O 09/27 [facility] Outpatient Encounter [id number] 09/28 [facility] Outpatient Encounter [id number] 10/19 [facility] Outpatient Encounter [id number] 10/20 [facility] Outpatient Encounter [id number] 10/26 [facility] OT EVAL MOD COMPLEX 45 MIN [id number] Diagnos is: ICD-10- CM 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
FLINT,ANDR EW H 11/09 [facility] N [facility] OFFICE O/P EST HI 40 MIN [id number] Diagnos is: ICD-10- CM I48.91 Unspeci fied atrial fibrill ation<b r/> SALVADOR MCCOY SA 11/19 [facility] Outpatient Encounter [id number] 11/19 [facility] N [facility] Outpatient Encounter [id number] 11/22 [facility] N [facility] Outpatient Encounter [id number] KLEIN,T ODD 11/23 [facility] N [facility] Outpatient Encounter [id number] 11/30 [facility] SELF CARE MNGMENT TRAINING [id number] Diagnos is: ICD-10- CM 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
FLINT,ANDR EW H 12/06 [facility] N Social History Combined list of available smoking, tobacco, and other social history from Department of Defense and Veterans Affairs facilities. Social History Type Response Date Comment Sourc e Tobacco smoking status NHIS VA-TOBACCO USE FORMER CIGARETTES 11/19/2024 [facility] History of tobacco use VA-TOBACCO USE EVERY DAY OTHER TYPE 11/19/2024 [facility] History of tobacco use [place]-TOBACCO USER EVERY DAY 05/22/2023 [facility] of [facility] WA[facility] 03/04/2022 [facility] History of tobacco use QUIT TOBACCO >7 YEARS AGO 10/26/2013 [facility]
--- OUTSIDE RECORDS SUMMARY | 2024-12-17 08:34 | XMS_ITS | Encounter Summary ---
Author Name [facility] (MD) Organization [facility] (MD) Address [address] [place] [address] Care Team Providers Care [employer] Travel Counselor Name Role Phone RADHA KLEIN Primary Care Provider Unavailuche gandhi Insurance Providers: All historical and current Section [...] PART A Jan 22, 2003 PART A [id number] [place] PATIENT MEDICARE (WNR) MEDICARE (M) PART B Jan 22, 2003 PART B [id number] [phone] [place] PATIENT Selected Encounter This section includes the information on record at MD for the Encounter. 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 Date/Time Primary/Secondary Diagnosis Diagnosis Name Provider Source Nov 09, 2024 10:00 AM PRIMARY Carcinoma in situ of prostate SANDEEP GUIDO [facility] Plan of Treatment: Future Appointments (+ 6 months) and Future Tests (+/- 45 days) The Plan of Treatment section includes future care activities for the patient from [facility]. This section includes future appointments and future orders which are active, pending or scheduled. Future Appointments This section includes appointments that were scheduled to occur 6 months from the date of the Encounter, up to a maximum of 20 appointments. The data comes from all MD treatment facilities. Appointment Date/Time Appointment Type Appointme nt Facility Name Nov 19, 2024 10:30 AM AMBULATORY - MEDICINE [facility] Dec 06, 2024 09:30 AM AMBULATORY - REHAB [facility]IC[facility] Lab Results: +/- 30 days of the encounter This section includes the Chemistry and Hematology Lab Results on record with MD for the patient. Radiology Reports and Pathology Reports are provided separately, in subsequent sections. Lab Results This section contains the Chemistry/Hematology Results that were resulted 30 days before or 30 daysafter the date of the Encounter. Date/Time Source Result Type Result - Unit Interpretation Reference Range Comment Nov 19, 2024 12:00 AM [facility] VITAMIN D, 25-HYDROXY Specimen Type: SERUM No comment entered. Ordering Provider: KATHIA MCCOY Report Released Date/Time: Nov 19, 2024 11:20 AM Reporting Lab: [facility] [address] [phone] Performing Lab: [facility] [address] [phone] VITAMIN D, 25-HYDROXY 32.8 ng/mL 30-96 Nov 19, 2024 12:00 AM [facility] COMPREHENSIVE METABOLIC PANEL Specimen Type: PLASMA Comment: No hemolysis noted. Ordering Provider: KATHIA MCCOY Report Released Date/Time: Nov 19, 2024 11:20 AM Reporting Lab: [facility] [address] [phone] Performing Lab: [place] [address] [address] CREATININE 0.76 mg/dL 0.7-1.3 UREA NITROGEN 17.3 [...] 87.5 >60 Nov 19, 2024 12:00 AM [facility] CBC Specimen Type: BLOOD No comment entered. Ordering Provider: KATHIA MCCOY Report Released Date/Time: Nov 19, 2024 11:20 AM Reporting Lab: [facility] [address] [phone] Performing Lab: [facility] [address] [phone] WBC 7.4 10*3/uL 3.6-11.2 RBC 4.79 10*6/uL [...] 10*3/uL 0.00-0.20 Nov 19, 2024 12:00 AM [facility] HGA1C Specimen Type: BLOOD No comment entered. Ordering Provider: KATHIA MCCOY Report Released Date/Time: Nov 19, 2024 11:20 AM Reporting Lab: [facility] [address] [place] [phone] Performing Lab: [address] [address] HGA1C 7.4 H 4.0-6.0 Nov 19, 2024 12:00 AM [facility] LIPID PANEL (STL) Specimen Type: PLASMA Comment: No hemolysis noted. Ordering Provider: KATHIA MCCOY Report Released Date/Time: Nov 19, 2024 11:20 AM Reporting Lab: [facility] [address] [place] [phone] Performing Lab: [address] [address] CHOLESTEROL 145 mg/dL 0-200 TRIGLYCERIDE 106 mg/dL 0-150 CALCULATED LDL 94 mg/dL HDL(New) 30 mg/dL L >40 Nov 19, 2024 12:00 AM [facility] MICRAL/CREAT PROFILE (STL) Specimen Type: URINE Comment: uALB/CREAT Ratio Unable to be calculated Unable to calculate due to Microalbumin < 5.0 mg/L Ordering Provider: KATHIA MCCOY Report Released Date/Time: Nov 19, 2024 11:20 AM Reporting Lab: [facility] [address] [place] [phone] Performing Lab: [facility] [address] [place] [phone] URINE ALBUMIN (PB-STL) <5.0 mg/L uACR (STL) comment mg/g 0-29 CREATININE URINE/OTHERS 73.2 mg/dL 63-166 Nov 19, 2024 12:00 AM [facility] URINALYSIS (STL-PB) Specimen Type: URINE No comment entered. Ordering Provider: KATHIA MCCOY Report Released Date/Time: Nov 19, 2024 11:20 AM Reporting Lab: [facility] [address] [place] [phone] Performing Lab: [facility] [address] [place] [phone] URINE COLOR Light-Yellow Yellow U.BILIRUBIN Negative mg/dL [...] GRAVITY 1.020 Nov 19, 2024 12:00 AM [facility] TSH (MA-PB) Specimen Type: SERUM No comment entered. Ordering Provider: KATHIA MCCOY Report Released Date/Time: Nov 19, 2024 11:20 AM Reporting Lab: [facility] [address] [place] [phone] Performing Lab: [address] [phone] TSH 0.928 u[IU]/mL 0.47-5 Encounter Notes: All associated encounter notes This section contains the clinical notes associated to the Encounter. Date/Time Encounter Note(s) Provider Source Nov 09, 2024 09:30 AM OCCUPATIONAL MEDIC INE CONSULT: LOCAL TITLE: OT CONSULT [facility] STANDARD TITLE: OCCUPATIONAL MEDICINE CONSULT DATE OF NOTE: NOV 09, 2024@09:30 ENTRY DATE: NOV 09, 2024@09:30:07 AUTHOR: SANDEEP GUIDO EXP COSIGNER: URGENCY: STATUS: [facility] OT HOME EVALUATION NOTE INITIAL Diagnosis: Carcinoma in situ of prostate(ICD-10-CM D07.5) Requesting Provider: RADHA KLEIN Reason for request: Home Access (ramps & handrails) Order/Precautions/Surgery/Pr ocedures performed: None Date of Initial Evaluation: NOV 09, 2024 Visit #: 1 Ca or NS #: 0 Total Treatment Time: 929 OT EVAL mod 75033: 25 minutes Appointment was conducted via telehealth/clinical video teleconferencing (CVT/VVC/VCM) to home/MD Video Connect/Virtual manager chemical. Gordon gave verbal consent prior to the start of the appointment. Gordon has been informed of and verbally consented to the followin. The nature of telehealth and its benefits and risks 2. Confidentiality and its limits 3. The emergency plan Patient's address, telephone number, and email during the session: [address] [place] [phone] Patient Email - [email or web address] Names of other individuals present in the home/outside clean up person: Contact information for above (if applicable): [id number]: Providers location and contact information for this appointment (verified with ): yes PROVIDER LOCATION NAME: Sandeep Guido PROVIDER PHONE: [phone] ext [phone] IMPACT OF TECHNOLOGY: Video and audio quality of the connection during this video-telehealth session were good. There were no identifiable technology barriers to the delivery of care in this session. No patient sessions are allowed to be recorded at any time without express consent of the patient. Any recordings [place] [id number] found here [email or web address].va.gov/vaforms/v [email or web address] Lock Virtual Conference Room Past Medical History: 1) Polyp of colon (SNOMED CT 39373278) 2) Benign hypertension (SNOMED CT 74333273) 3) Prostate cancer 4) Hearing loss (SNOMED CT 84817597) 5) Melanoma in situ 6) H/O: cardiac pacemaker in situ (SNOMED CT 232280709) 7) AF - Atrial Fibrillation (SCT 45352366) 8) Diabetes Mellitus Type 2 (SCT 58544138) 9) Hyperlipidemia 10) Generalised aches and pains SUBJECTIVE: We need a railing coming up to the front door Vet's personal goal: stair navigation Family/Caregiver goal: Same Pain: Pain Scale: Sitting at rest 7 on the 0-10 pain scale. (0=no pain, 10=unbearable pain). Sensation: occasional numbness and tingling in feet OBJECTIVE: Pt seen this date for home eval to assess home safety and equipment needs. Identification of who is present during eval: [x] spouse: Colleen [] child [] Caregiver [] other : EQUIPMENT CURRENTLY IN HOME: [] ramp [] w/c []manual []power []VA issued [] transport chair []VA issued [] walker []standard []2 wheeled []seated []VA issued [x]cane [x]straight - used outside the home on occasion []SBQC []LBQC []VA issued [] scooter []VA issued [] yasmin/ceiling lift [] hospital bed [] overbed trapeze [] bedside commode [] toilet rails [] toilet surround [] raised toilet seat [] shower chair [] tub transfer bench [] tub-mounted grab bar [] grab bar(s) and identify location: [] HH shower [] track vehicle repairer [] LH shoehorn [] dressing stick [] sock aid []long sponge [] bedcane/rail [] lift chair [] medical alert [] other HOME ENVIRONMENT: [x] own [] rental -Lives with: [] alone [x] spouse [] child: son/daughter [] friend [] other -Type of dwelling: [x] single level without basement [] 2-story with/without basement [] split level [] modular home with basement [] trailer [] apt [] senior citizen apt [] condo -Parking Vehicle to access is located: [] Street [] Parking Lot [] Driveway [x] Garage: attached [] Other -Walkway to doorway: Exterior of home: pathway is: [x]level []uneven []obscured -Entry: Main door being used to/from enter/exit home:[x]front []side []garage []backdoor Steps to doorway [x]yes How Many_2__ []no Rails[]yes [x]no and # Condition of stairs: [x] good condition [] repair needed [] rail loose Ramp available: []Y [x]N []NA Elevator available: []Y [x]N []NA Can pt safely evacuate house in case of emergency: []yes [x]no Secondary door being used to/from enter/exit home:[]front []side [x]garage [] backdoor Steps to doorway [x]yes. How Many_x__ []no Rails[x]yes []no and #___1___ Condition of stairs: [x] good condition [] repair needed [] rail loose Ramp available: []Y [x]N []NA Elevator available: []Y [x]N []NA Can pt safely evacuate house in case of emergency: [x]yes []no -Interior of home: Overall # of Interior Steps that will be used by the : 0 -Rivera: [] carpeting [] tile linoleum [x] hardwood [] area rugs -Condition of home [x] clean/neat [] cluttered [] dirty [] in need of repair [] uneven Traffic areas free from electrical/telephone cords/oxygen tubing: [x]yes [] no Exits and passageways kept clear: [x]yes []no Adequate lighting: [x]yes []no Animals in the home: []yes [x]no details: BATHROOM: Location used by patient:[x] main []2nd floor Bathing: [x]hallway [] master []tub [x]tub/shower combo []curtain [x]glass doors [] Fiberglass insert [x] tiled snowden []walk/roll-in shower with []curtain []sliding doors []swinging door [] Fiberglass insert []tiled snowden []Standing tub/shower []shower chair []tub bench [x]HH shower [x]grab bars [1] quantity [x]fixed []suction cup []tub rail [x]Nonskid floor or mat Challenge getting into and out of the shower [] Yes [] No Toileting: [x]hallway [] master []Regular height [x]Handicapped height []toilet surround []raised toilet seat []Grab Bars []Bidet []BSC []regular round seat [s]oblong elongated seat Style of sink in bathroom used: [x]Vanity []Pedestal Support use of ambulatory device: [x]yes []no Challenge getting onto and off the toilet [] Yes [x] No BEDROOM: [x]main []2nd floor []cluttered [x] clean Rivera: []carpet [x] hardwood [] laminate [] ceramic tile []vinyl Rug: [x]none []area []throw Bed: [][place] [x][place] [][facility] [] recliner [x] Standard flat mattress [] Height and HOB adjustable Nightlight: [x]yes []no Bed Cane [] Falling out of bed: [] Yes [x] No Challenge getting into and out of bed [] Yes [x] No SENSORY AND COMMUNICATION: completed VVC due to 's decreased hearing No further cognitive testing indicated MOBILITY: (I) on level surfaces []without device []cane []wheeled walker [] rollator []w/c []non-ambulatory -Transfers onto firm chairs with armrests (dining chairs, etc.) :[]INDEPENDENT []SETUP []SUPERVISION []NEEDS ASSISTANCE -Transfers onto soft chairs (recliner chairs/couches, etc.) :[]INDEPENDENT [] SETUP []SUPERVISION []NEEDS ASSISTANCE -Home Mobility: []INDEPENDENT []SETUP []SUPERVISION []NEEDS ASSISTANCE -Community Mobility: []INDEPENDENT []SETUP []SUPERVISION []NEEDS ASSISTANCE -Stairs: []INDEPENDENT []SETUP []SUPERVISION []NEEDS ASSISTANCE FUNCTIONAL ABILITY: -Eating: [x]INDEPENDENT []SETUP []SUPERVISION []NEEDS ASSISTANCE -Grooming:[x]INDEPENDENT []SETUP []SUPERVISION []NEEDS ASSISTANCE -Bathing: [x]INDEPENDENT []SETUP []SUPERVISION []NEEDS ASSISTANCE -UE Dressing: [x]INDEPENDENT []SETUP []SUPERVISION []NEEDS ASSISTANCE -LE Dressing:[x]INDEPENDENT []SETUP []SUPERVISION []NEEDS ASSISTANCE -Toileting: [x]INDEPENDENT []SETUP []SUPERVISION []NEEDS ASSISTANCE -Transfer - Bed, Chair, W/C: [x]INDEPENDENT []SETUP []SUPERVISION [] NEEDS ASSISTANCE -Transfer - Toilet: [x]INDEPENDENT []SETUP []SUPERVISION []NEEDS ASSISTANCE -Transfer - Tub, Shower: [x]INDEPENDENT []SETUP []SUPERVISION []NEEDS ASSISTANCE JOSHUA Section GG Self-Care and Mobility * TORRES: 6: Independent, 5: Setup or Cleanup Assistance. 4: Supervision or Touching Assistance. 3: Partial/Moderate Assistance. 2: Substantial/Maximal Assistance. 1: Dependent. 07: Refused. 09: Not Applicable Did not perform this activity prior. 10: Not Attempted Due to environmental limitations. 88: Not Attempted Due to medical condition/safety concerns IADLS/HOME MGMT SKILLS: -Meal Prep: [](I) [x]dependent who provides -Laundry: [](I) [x]dependent who provides -Transportation: [x](I) []dependent who provides shared -Medication Mgmt: [x](I) []dependent who provides [x]Description for med mgmt: pill box SKIN INTEGRITY/POSITIONING: [x]intact []sores [] bruising Instructed in importance of proper positioning and need for frequent repositioning. FALL RISK ASSESSMENTS: -FALL HISTORY:[x] none # in last 3 months # last 6 months -BOLAÑOS FALL RISK ASSESSMENT History of falling (within 3 months): 0 = No Secondary diagnosis contributing to fallin = Yes Ambulatory aid used during gait: 15 = crutches/cane/walker IV therapy: 0 = No Gait/transfer characteristics: 10 = weak Mental status: 0 = Oriented to own ability Total Score: 40 0-24 = Low Fall Risk, 25-44 = Moderate Fall Risk, 45 and higher = High Fall risk -ADDITIONAL RISK FACTORS: physical impairments, cognitive impairment, sensory deficits, orthostatic hypotension, incontinence, visual impairment, hearing impairment, environment hazards, pain affecting function, poly-pharmacy (9+ meds), low vitamin D level, weight loss, choosing not to use ambulatory assistive device, multiple medical problems. -Fall Risk Precautions/Interventions include: encourage non-slip footwear, night light and/or bathroom light left on, environmental hazards reduced as much as possible, individualize equipment to patient needs, exercise program, hip protectors, bed/chair/door alarms, encourage to wear medical alert device or keep phone within reach, orthostatic precautions, patient to use assistive device/patient to be accompanied by family/caregiver when transferring/ambulating, education on home safety/fall prevention techniques, bathroom safety. EQUIPMENT ORDERED ___Tub Bench __x_Shower Chair with armrests ___Grab Bars 16 long ___Tub Rail ___Safety Strips ___Hand Held Shower ___LH Sponge ___Versa Frame ___Raised Toilet Seat round ___Raised Toilet Seat elongated ___Toilet Safety surround ___Bedside Commode ___Bidet []handheld [] toilet seat ___Sock Aid ___Button Hook ___Shoe Horn ___Dressing Stick ___Reacher ___Doffer ___MediButler ___Lg Chief Information Officer Fork ___Lg Chief Information Officer Spoon ___Lipped Plate ___Dycem ___Rocker Knife _x__HISA: Handrails for front door stairs ___Ramp ___ Stairglide straight ___ Stairglide curved (must be able to independently transfer) ___Hoyer Lift (split leg vs full body & size) ___Bed Cane (no DME delivery installation available ___Hospital Bed (half rail/split rail/full rail) ___ [facility] [place] [facility] __VDC ___Other: Follow up for next session: HISA and shower chair. Patient education was ready to learn and demonstrated an understanding of equipment issued. Gordon given 1:1 instruction in equipment issued and/or home exercise program as noted above. PT/FAMILY EDUCATION AND RECOMMENDATIONS: [x]Home safety and fall prevention techniques [x]Bathroom safety [x]Use of equipment []HISA Application process []Correct use of cane/walker []Advised to decrease clutter to reduce the risk of tripping or slipping []Recommend removing or securing rugs []Energy conservation/work simplification techniques []Pressure reduction/Proper positioning ASSESSMENT: This 84 year old MALE with dx of carcinoma, was referred for HSE due to difficulty transferring into and out of the shower/onto and off the toilet/into and out of bed/lower body dressing/navigating stairs. Vet is able to complete ADLs/functional mobility independently. Pt requires assist with ADLs/functional mobility. Pt has family/OFFICE COMMUNICATION PROFESSOR that assists as needed. Pt is a fall risk. Pt/family was educated in DME/AE available and ordered appropriate equipment. Pt/family was also educated in home safety and fall prevention techniques. Pt/family verbalized/demonstrated understanding of equipment use and education. Gordon with challenges transferring into and out of the shower due to lower extremity weakness and instability, will benefit from the following equipment which the OT provided training and education on and will order: shower chair with armrests with challenges entering and exiting the home due to lower extremity weakness and instability, will benefit from the following equipment which the OT provided training and education on and will order: HISA for handrails for front door stairs Will return for 1 f/u visit if equipment was ordered for training and safety with vet in home. Barriers to goals: None Occupational Profile and History [] Brief (low) [x] Expanded (moderate) [] Extensive (high) Performance deficits identified: [x] ADLs [x] IADLs [x] Functional mobility [] Range of motion [] Muscle Strength [] Functional Endurance [] Functional Balance [] Fine motor coordination [x] Adaptive equipment needs [] Cognition [] Vision [] Coping skills [] Interpersonal interaction [] Impulse control [] Other (please specify: ) Torres: 1-3 performance deficits = Low complexity 3-5 performance deficits = moderate complexity 5 or more performance deficits = high complexity Level of Clinical Decision Making [] problem-focused assessment [x] detailed assessment [] comprehensive assessment --Therefore, from the findings above in Veterans Occupational Profile/History, Performance Deficits and level of clinical decision making, the OT Evaluation level of complexity of this patient was: [] Low [x] Moderate [] High PLAN: to be seen by OT 1 F/U visit to be trained in use for the above mentioned items and will be trained in proper use and safety of equipment. Discussed plan of care with /family and /family was agreeable to plan. Continued skilled occupational therapy as below to address: Treatment Plan: _x__ADLs ___UE AROM/AAROM/PROM _x__Transfers ___Cognition ___Coordination ___Endurance ___Gross/Fine Motor ___Home Management ___Visual Perception ___Standing Act. ___UE Strengthening ___Sensation/Compensation ___Visual Skills ___Facilitation ___Inhibition _x__Adaptive equipment Assessment ___Other: SHORT TERM GOALS = ASSISTED GOALS: To be achieved in (1 visit). 1. Demo use of any needed AE/DME with Mod I for ADls. 2. Demo Understanding of HISA madelin application process. Date of Initiation of Treatment Plan: NOV 09, 2024 Anticipated Discharge of Treatment Plan: November 2024 Pt education reminder VVC template- go to Shared templates, shared templated STL, A video Connect Visit Learning Assessment: Patient/Caregiver appeared ready for instruction (good eye contact, appropriate questions, active participation, etc.) Person(s) who received education: Patient Spouse/Significant Other Colleen Education Topic/Teaching Needs: Equipment Use/Safety shower chair with armrests Other: HISA application process Comment: Gordon educated on need to wait to start work until they have submitted a completed HISA application, color photos of the area(s) that will be modified before any work is done, and a bid for the materials and labor involved in the modification. Methods used included: One-on-one: verbal and vvc screen share Teaching outcomes: Good level of understanding /luis/ SANDEEP GUIDO Occupational Therapist, MOT OR/L Signed: 11/09/2024 10:00 SANDEEP GUIDO [facility]
--- OUTSIDE RECORDS SUMMARY | 2024-12-17 08:34 | XMS_ITS ---
Author Name [facility] [place] [facility] [place] Organization [facility] [place] Address [address] [place] [address] Care Team Providers Care Vice President Underwriting Name Role Phone RADHA KLEIN Primary Care [...] Policy Vo MEDICARE (WNR) MEDICARE (M) PART B Jan 22, 2003 PART B [id number] [phone] THAD TORIBIO PATIENT MEDICARE (WNR) MEDICARE (M) PART A Jan 22, 2003 PART A [id number] [phone] CATARINOTHAD PATIENT Selected Encounter This section includes the information on record at [place] for the Encounter. 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 Date/Time Primary/Secondary Diagnosis Diagnosis Name Provider Source Dec 06, 2024 09:47 AM PRIMARY Carcinoma in situ of prostate SANDEEP GUIDO [facility] Lab Results: +/- 30 days of the encounter This section includes the Chemistry and Hematology Lab Results on record with [place] for the patient. Radiology Reports and Pathology Reports are provided separately, in subsequent sections. Lab Results This section contains the Chemistry/Hematology Results that were resulted 30 days before or 30 daysafter the date of the Encounter. Date/Time Source Result Type Result - Unit Interpretation Reference Range Comment Nov 19, 2024 12:00 AM [facility] VITAMIN D, 25-HYDROXY Specimen Type: SERUM No comment entered. Ordering Provider: KATHIA MCCOY Report Released Date/Time: Nov 19, 2024 11:20 AM Reporting Lab: [address] [address] Performing Lab: [address] [address] VITAMIN D, 25-HYDROXY 32.8 ng/mL 30-96 Nov 19, 2024 12:00 AM [facility] CBC Specimen Type: BLOOD No comment entered. Ordering Provider: KATHIA MCCOY Report Released Date/Time: Nov 19, 2024 11:20 AM Reporting Lab: [facility] [address] [place] [address] Performing Lab: [address] [address] WBC 7.4 10*3/uL 3.6-11.2 RBC 4.79 10*6/uL [...] 10*3/uL 0.00-0.20 Nov 19, 2024 12:00 AM [facility] COMPREHENSIVE METABOLIC PANEL Specimen Type: PLASMA Comment: No hemolysis noted. Ordering Provider: KATHIA MCCOY Report Released Date/Time: Nov 19, 2024 11:20 AM Reporting Lab: [facility] [address] [facility] [address] Performing Lab: [address] [address] CREATININE 0.76 mg/dL 0.7-1.3 UREA NITROGEN 17.3 [...] 87.5 >60 Nov 19, 2024 12:00 AM [facility] HGA1C Specimen Type: BLOOD No comment entered. Ordering Provider: KATHIA MCCOY Report Released Date/Time: Nov 19, 2024 11:20 AM Reporting Lab: [facility] [address] [facility] [address] Performing Lab: [address] [address] HGA1C 7.4 H 4.0-6.0 Nov 19, 2024 12:00 AM [facility] LIPID PANEL (STL) Specimen Type: PLASMA Comment: No hemolysis noted. Ordering Provider: KATHIA MCCOY Report Released Date/Time: Nov 19, 2024 11:20 AM Reporting Lab: [address] [address] Performing Lab: [address] [address] CHOLESTEROL 145 mg/dL 0-200 TRIGLYCERIDE 106 mg/dL 0-150 CALCULATED LDL 94 mg/dL HDL(New) 30 mg/dL L >40 Nov 19, 2024 12:00 AM [facility] MICRAL/CREAT PROFILE (STL) Specimen Type: URINE Comment: uALB/CREAT Ratio Unable to be calculated Unable to calculate due to Microalbumin < 5.0 mg/L Ordering Provider: KATHIA MCCOY Report Released Date/Time: Nov 19, 2024 11:20 AM Reporting Lab: [address] [address] Performing Lab: [address] [address] URINE ALBUMIN (PB-STL) <5.0 mg/L uACR (STL) comment mg/g 0-29 CREATININE URINE/OTHERS 73.2 mg/dL 63-166 Nov 19, 2024 12:00 AM [facility] TSH (MA-PB) Specimen Type: SERUM No comment entered. Ordering Provider: KATHIA MCCOY Report Released Date/Time: Nov 19, 2024 11:20 AM Reporting Lab: [address] [address] Performing Lab: [address] [address] TSH 0.928 u[IU]/mL 0.47-5 Nov 19, 2024 12:00 AM [facility] URINALYSIS (STL-PB) Specimen Type: URINE No comment entered. Ordering Provider: KATHIA MCCOY Report Released Date/Time: Nov 19, 2024 11:20 AM Reporting Lab: [address] [address] Performing Lab: [address] [address] URINE COLOR Light-Yellow Yellow U.BILIRUBIN Negative mg/dL [...] mg/dL N egative-Tr cassidy URN.SPECIFIC GRAVITY 1.020 Encounter Notes: All associated encounter notes This section contains the clinical notes associated to the Encounter. 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 Douglas gave verbal consent prior to the start of the appointment. has been informed of and verbally consented to the followin. The nature of telehealth and its benefits and risks 2. Confidentiality and its limits 3. The emergency plan Patient's address, telephone number, and email during the session: [address] [place] [address] Patient Email - [email or web address]: Provider's location and contact information for this appointment (verified with Douglas): yes PROVIDER LOCATION NAME: Sandeep Guido PROVIDER PHONE: [phone] ext [phone] IMPACT OF TECHNOLOGY: Video and audio quality of the connection during this video-telehealth session were good. There were no identifiable technology barriers to the delivery of care in this session. No patient sessions are allowed to be recorded at any time without express consent of the patient. Any recordings [place] signed [place] of [place] [id number] found here [email or web address]://[email or web address].va.gov/vaforms/v [email or web address] Lock Virtual Conference Room SUBJECTIVE: The shower chair works great OBJECTIVE: Pt seen this date for home eval follow-up to assess any ongoing home safety and equipment needs. reported the following: Shower Chair with armrests - Received and working well HISA: Handrails for front door stairs Follow up for next session: HISA and shower chair. Treatment & Education: OT provided with their phone number for any ongoing home safety needs Identification of who is present during eval: [x] spouse: [] child [] Caregiver [] other : EQUIPMENT ORDERED None Patient education Douglas was ready to learn and demonstrated an understanding of equipment issued. given 1:1 instruction in equipment issued and/or home exercise program as noted above. PT/FAMILY EDUCATION AND RECOMMENDATIONS: []Home safety and fall prevention techniques []Bathroom safety []Use of equipment []HISA Application process []Correct use [...] requires assist with ADLs/functional mobility. Pt has family/BELL SPINNER SOUSAPHONES that assists as needed. Pt is a fall risk. Pt/family was educated in DME/AE available and ordered appropriate equipment. Pt/family was also educated in home safety and fall prevention techniques. Pt/family verbalized/demonstrated understanding of equipment use and education. All needs met at this time, D/C skilled OT. Barriers to goals: None SHORT TERM GOALS = TIRE REPAIR MECHANIC GOALS: To be achieved in (1 visit). 1. Demo use of any needed AE/DME with Mod I for ADls. Status: Goal met 2. Demo Understanding of HISA madelin application process Status: Goal met Date of Initiation of Treatment Plan: 11/09/2024 Anticipated Discharge of Treatment Plan: 12/06/2024 PLAN: D/C with no follow up after one visit secondary to achieving goal this visit. Douglas or caregiver will understand safe use of equipment listed above. will have verbal and written instructions on use of equipment. to be ordered equipment and sent to his/her home. No further follow up at this time. /luis/ SANDEEP GUIDO Occupational Therapist, MOT OR/L Signed: 12/06/2024 09:47 SANDEEP GUIDO [facility]
--- OUTSIDE RECORDS SUMMARY | 2024-12-17 08:34 | XMS_ITS ---
Care Plan - [facility] Created on: December 17, 2024 THAD TORIBIO : 1940 Sex: Male Author Organization [facility] Address [address] [place] [address] Phone Care Team Providers Care Group Sales Representative Name Role Phone Unavailable Unavailable Unavailable
--- OUTSIDE RECORDS SUMMARY | 2024-12-17 08:34 | XMS_ITS | Clinical Summary ---
Author Organization [facility] Address [address] [place] [address] Phone Care Team Providers Care Bin Cleaner Name Role Phone Unavailable Unavailable Unavailable Reason for Visit and Chief Complaint NEW PATIENT VISIT Plan of Treatment No Plan of Treatment Recorded Assessments Includes: Assessments from this encounter No Assessments Recorded Medical Equipment - Implanted Devices Includes: Current Devices No Medical Equipment Recorded Medications Administered Includes: Administered Medications from this encounter No Administered Medications Recorded Results Includes: Results discussed during this encounter No Results Recorded For Specified Dates History of Present Illness Includes: History of Present Illness from this encounter No History of Present Illness Recorded Social History No Social History Recorded - Smoking Status Unknown Medical History Includes: Medical History addressed during this encounter No Medical History Recorded Family History Includes: Family History addressed during this encounter No Family History Recorded Review of Systems Includes: Review of Systems from this encounter No Review of Systems Recorded Mental Status Includes: Mental Status from this encounter No Mental Status Recorded Functional Status Includes: Functional Status from this encounter No Functional Status Recorded Physical Exam Includes: Physical Exam from this encounter No Physical Exam Recorded Encounters Encounter Provider Location Date Check-In Time Check- Out Time Diagnosis NEW PATIENT VISIT [facility] 8 1:45PM 11:59PM Insurance Includes: Active Insurance Policies No Insurance Coverage Recorded Guarantor Relationship Effective Dates Guarantor Ph one THAD TORIBIO Self [id number] Clinical Notes Includes: Clinical Notes from this encounter No Clinical Notes Recorded
--- OUTSIDE RECORDS SUMMARY | 2024-12-17 08:34 | XMS_ITS | Encounter Summary ---
Author Name [facility] [facility] [place] [facility] [place] Address [address] [place] [address] Care Team Providers Care Business Improvement Manager Name Role Phone RADHA KLEIN Primary Care [...] PART A Jan 22, 2003 PART A [id number] THAD TORIBIO PATIENT MEDICARE (WNR) MEDICARE (M) PART B Jan 22, 2003 PART B [id number] THAD TORIBIO PATIENT Selected Encounter This section includes the information on record at [place] for the Encounter. Date/Time Encounter Type Encounter Description Reason Pro vider Source Oct 20, 2024 03:40 PM Outpatient Encounter ADMIN PAT ACTIVTIES (MASNONCT) IHE Encounter Template Text not used by [place] Plan of Treatment: Future Appointments (+ 6 months) and Future Tests (+/- 45 days) The Plan of Treatment section includes future care activities for the patient from all [facility] treatmentfacilities. This section includes future appointments and future orders which are active, pending or scheduled. Future Appointments This section includes appointments that were scheduled to occur 6 months from the date of the Encounter, up to a maximum of 20 appointments. The data comes from all [place] treatment [facility]. Appointment Date/Time Appointment Type Appointme nt Facility Name Nov 09, 2024 09:30 AM AMBULATORY - RE[facility]AB [facility] Nov 19, 2024 10:30 AM AMBULATORY - MEDICINE [facility] Dec 06, 2024 09:30 AM [facility] Lab Results: +/- 30 days of the encounter This section includes the Chemistry and Hematology Lab Results on record with [place] for the patient. Radiology Reports and Pathology Reports are provided separately, in subsequent sections. Lab Results This section contains the Chemistry/Hematology Results that were resulted 30 days before or 30 daysafter the date of the Encounter. Date/Time Source Result Type Result - Unit Interpretation Reference Range Comment Nov 19, 2024 12:00 AM [facility] VITAMIN D, 25-HYDROXY Specimen Type: SERUM No comment entered. Ordering Provider: KATHIA MCCOY Report Released Date/Time: Nov 19, 2024 11:20 AM Reporting Lab: [facility] [address] [facility] [address] Performing Lab: [facility] [address] [facility] [address] VITAMIN D, 25-HYDROXY 32.8 ng/mL 30-96 Nov 19, 2024 12:00 AM [facility] CBC Specimen Type: BLOOD No comment entered. Ordering Provider: KATHIA MCCOY Report Released Date/Time: Nov 19, 2024 11:20 AM Reporting Lab: [facility] [address] [facility] [address] Performing Lab: [place] [id number] [facility] [address] WBC 7.4 10*3/uL 3.6-11.2 RBC 4.79 10*6/uL [...] 10*3/uL 0.00-0.20 Nov 19, 2024 12:00 AM [facility] COMPREHENSIVE METABOLIC PANEL Specimen Type: PLASMA Comment: No hemolysis noted. Ordering Provider: KATHIA MCCOY Report Released Date/Time: Nov 19, 2024 11:20 AM Reporting Lab: [address] [address] Performing Lab: [address] [address] CREATININE 0.76 mg/dL 0.7-1.3 UREA NITROGEN 17.3 [...] 87.5 >60 Nov 19, 2024 12:00 AM [facility] HGA1C Specimen Type: BLOOD No comment entered. Ordering Provider: KATHIA MCCOY Report Released Date/Time: Nov 19, 2024 11:20 AM Reporting Lab: [address] [place] [address] Performing Lab: [address] [address] HGA1C 7.4 H 4.0-6.0 Nov 19, 2024 12:00 AM [facility] LIPID PANEL (STL) Specimen Type: PLASMA Comment: No hemolysis noted. Ordering Provider: KATHIA MCCOY Report Released Date/Time: Nov 19, 2024 11:20 AM Reporting Lab: [address] [address] Performing Lab: [address] [address] CHOLESTEROL 145 mg/dL 0-200 TRIGLYCERIDE 106 mg/dL 0-150 CALCULATED LDL 94 mg/dL HDL(New) 30 mg/dL L >40 Nov 19, 2024 12:00 AM [facility] MICRAL/CREAT PROFILE (STL) Specimen Type: URINE Comment: uALB/CREAT Ratio Unable to be calculated Unable to calculate due to Microalbumin < 5.0 mg/L Ordering Provider: KATHIA MCCOY Report Released Date/Time: Nov 19, 2024 11:20 AM Reporting Lab: [address] [address] Performing Lab: [address] [address] URINE ALBUMIN (PB-STL) <5.0 mg/L uACR (STL) comment mg/g 0-29 CREATININE URINE/OTHERS 73.2 mg/dL 63-166 Nov 19, 2024 12:00 AM [facility] URINALYSIS (STL-PB) Specimen Type: URINE No comment entered. Ordering Provider: KATHIA MCCOY Report Released Date/Time: Nov 19, 2024 11:20 AM Reporting Lab: [address] [address] Performing Lab: [address] [address] URINE COLOR Light-Yellow Yellow U.BILIRUBIN Negative mg/dL [...] GRAVITY 1.020 Nov 19, 2024 12:00 AM [facility] TSH (MA-PB) Specimen Type: SERUM No comment entered. Ordering Provider: KATHIA MCCOY Report Released Date/Time: Nov 19, 2024 11:20 AM Reporting Lab: [facility] [address] [facility] [address] Performing Lab: [facility] [address] [facility] [address] TSH 0.928 u[IU]/mL 0.47-5 Encounter Notes: All associated encounter notes This section contains the clinical notes associated to the Encounter. Date/Time Encounter Note(s) Provider Source Oct 20, 2024 03:40 PM PHARMACY PROGRESS NOTE: LOCAL TITLE: PHARMACY GENERAL ST STANDARD TITLE: PHARMACY PROGRESS NOTE DATE OF NOTE: OCT 20, 2024@15:40 ENTRY DATE: OCT 20, 2024@15:41:28 AUTHOR: XAVIER WOOD WH EXP COSIGNER: URGENCY: STATUS: COMPLETED Pahrmacy received chart notes from Dr. Vick's office for myrbetriq. Faxed provider back and advised that they need to send info to [facility] PCP, not pharmacy, as Pt is not approved for non-VA care. Records forwarded to PCP office /es/ XAVIER WOOD PharmD Community Care Pharmacist, Pharmacy Signed: 10/20/2024 15:46 XAVIER WOOD [facility]
--- OUTSIDE RECORDS SUMMARY | 2024-12-17 08:34 | XMS_ITS | Encounter Summary ---
Author Name [facility] [place] Organization [facility] [place] [facility] [place] Address [address] [place] [address] Care Team Providers Care Surgical Clinical Reviewer Name Role Phone RADHA KLEIN Primary Care Provider Hector gandhi Insurance Providers: All historical and current [...] PART A Jan 22, 2003 PART A [id number] CATARINOTHAD PATIENT MEDICARE (WNR) MEDICARE (M) PART B Jan 22, 2003 PART B [id number] [phone] THAD TORIBIO PATIENT Selected Encounter This section includes the information on record at [place] for the Encounter. Date/Time Encounter Type Encounter Description Reason Pro vider Source Oct 26, 2024 07:44 AM Outpatient Encounter PRIMARY CARE/MEDICINE IHE Encounter Template Text not used by [place] Plan of Treatment: Future Appointments (+ 6 [...] 20 appointments. The data comes from all [place] treatment [facility]. Appointment Date/Time Appointment Type Appointme nt Facility Name Nov 09, 2024 09:30 AM [facility] Nov 19, 2024 10:30 AM AMBULATORY - MEDICINE [facility] Dec 06, 2024 09:30 AM AMBULATORY - RE[facility]AB [facility] Lab Results: +/- 30 days of the encounter This section includes the Chemistry and Hematology Lab Results on record with [place] for the patient. Radiology Reports and Pathology Reports are provided separately, in subsequent sections. Lab Results This section contains the Chemistry/Hematology Results that were resulted 30 days before or 30 daysafter the date of the Encounter. Date/Time Source Result Type Result - Unit Interpretation Reference Range Comment Nov 19, 2024 12:00 AM [facility] VITAMIN D, 25-HYDROXY Specimen Type: SERUM No comment entered. Ordering Provider: KATHIA MCCOY Report Released Date/Time: Nov 19, 2024 11:20 AM Reporting Lab: [facility] [address] [facility] [address] Performing Lab: [address] [address] VITAMIN D, 25-HYDROXY 32.8 ng/mL 30-96 Nov 19, 2024 12:00 AM [facility] CBC Specimen Type: BLOOD No comment entered. Ordering Provider: KATHIA MCCOY Report Released Date/Time: Nov 19, 2024 11:20 AM Reporting Lab: [facility] [address] [facility] [address] Performing Lab: [place] [address] [facility] [address] WBC 7.4 10*3/uL 3.6-11.2 RBC 4.79 10*6/uL [...] 10*3/uL 0.00-0.20 Nov 19, 2024 12:00 AM [facility] COMPREHENSIVE METABOLIC PANEL Specimen Type: PLASMA Comment: No hemolysis noted. Ordering Provider: KATHIA MCCOY Report Released Date/Time: Nov 19, 2024 11:20 AM Reporting Lab: [address] [address] Performing Lab: [address] [address] CREATININE 0.76 mg/dL 0.7-1.3 UREA NITROGEN 17.3 [...] 87.5 >60 Nov 19, 2024 12:00 AM [facility] HGA1C Specimen Type: BLOOD No comment entered. Ordering Provider: KATHIA MCCOY Report Released Date/Time: Nov 19, 2024 11:20 AM Reporting Lab: [address] [address] Performing Lab: [facility] [address] [place] [address] HGA1C 7.4 H 4.0-6.0 Nov 19, 2024 12:00 AM [facility] LIPID PANEL (STL) Specimen Type: PLASMA Comment: No hemolysis noted. Ordering Provider: KATHIA MCCOY Report Released Date/Time: Nov 19, 2024 11:20 AM Reporting Lab: [address] [address] Performing Lab: [address] [address] CHOLESTEROL 145 mg/dL 0-200 TRIGLYCERIDE 106 mg/dL 0-150 CALCULATED LDL 94 mg/dL HDL(New) 30 mg/dL L >40 Nov 19, 2024 12:00 AM [facility] MICRAL/CREAT PROFILE (STL) Specimen Type: URINE Comment: uALB/CREAT Ratio Unable to be calculated Unable to calculate due to Microalbumin < 5.0 mg/L Ordering Provider: KATHIA MCCOY Report Released Date/Time: Nov 19, 2024 11:20 AM Reporting Lab: [facility] [address] [place] [phone] Performing Lab: [address] [address] URINE ALBUMIN (PB-STL) <5.0 mg/L uACR (STL) comment mg/g 0-29 CREATININE URINE/OTHERS 73.2 mg/dL 63-166 Nov 19, 2024 12:00 AM [facility] URINALYSIS (STL-PB) Specimen Type: URINE No comment entered. Ordering Provider: KATHIA MCCOY Report Released Date/Time: Nov 19, 2024 11:20 AM Reporting Lab: [facility] [address] [place] [phone] Performing Lab: [address] [address] URINE COLOR Light-Yellow Yellow U.BILIRUBIN Negative mg/dL [...] GRAVITY 1.020 Nov 19, 2024 12:00 AM [facility] TSH (MA-PB) Specimen Type: SERUM No comment entered. Ordering Provider: KATHIA MCCOY Report Released Date/Time: Nov 19, 2024 11:20 AM Reporting Lab: [facility] [address] [facility] [address] Performing Lab: [facility] [address] [facility] [address] TSH 0.928 u[IU]/mL 0.47-5 Social History: Smoking Status (Most current) and Tobacco Use (All prior to encounter date) This section includes the most current, and the historical, smoking and tobacco- related health factors from the [place] facility where the Encounter took place. Current Smoking Status This section includes the most current smoking, or tobacco-related health factor, from the [place] facility where the Encounter took place. Date/Time Current Smoking Status Comment Cecil moyer Oct 26, 2013 09:20 AM QUIT TOBACCO >7 YEARS AGO [facility] Encounter Notes: All associated encounter notes This section contains the clinical notes associated to the Encounter. Date/Time Encounter Note(s) Provider Source Oct 26, 2024 07:44 AM ADMINISTRATIVE NOT E: LOCAL TITLE: ADMINISTRATIVE STL STANDARD TITLE: ADMINISTRATIVE NOTE DATE OF NOTE: OCT 26, 2024@07:44 ENTRY DATE: OCT 26, 2024@07:44:56 AUTHOR: KALPANA ROJAS COSIGNER: URGENCY: STATUS: COMPLETED ADMINISTRATIVE STL Has ADDENDA RNCM received RX for Mirabegron ER and Office Notes from JENN Osborne. Office Note and RX will be given to PCP Na. /robi ROJAS REGISTERED NURSE, SHUTTLE OPERATOR Signed: 10/26/2024 07:48 11/04/2024 ADDENDUM STATUS: COMPLETED Per PCP's instructions RNCM called INSURANCE FOLLOW UP REPRESENTATIVE Keshia Osborne at [phone] to retrieve the medications Vet tried and failed prior to requesting Mirabegron ER 50mg. JENN Osborne's office stated they would fax past med list to PCP at [phone]. /luis/ KALPANA ROJAS REGISTERED NURSE, SHUTTLE OPERATOR Signed: 11/04/2024 14:50 KALPANA ROJAS [facility]
--- OUTSIDE RECORDS SUMMARY | 2024-12-17 08:34 | XMS_ITS | Encounter Summary ---
Author Name [facility] [place] Organization [facility] [place] Address [address] [place] [address] Care Team Providers Care Transit Man Name Role Phone RADHA KLEIN Primary Care [...] PART A Jan 22, 2003 PART A [id number] THAD TORIBIO PATIENT MEDICARE (WNR) MEDICARE (M) PART B Jan 22, 2003 PART B [id number] THAD TORIBIO PATIENT Selected Encounter This section includes the information on record at [place] for the Encounter. Date/Time Encounter Type Encounter Description Reason Provider Source Apr 28, 2024 12:06 PM Outpatient Encounter ADMIN PAT ACTIVTIES (MASNONCT) XAVIER WOOD Encounter Template Text not used by [place] Plan of Treatment: Future Appointments (+ 6 [...] 20 appointments. The data comes from all [facility]. Appointment Date/Time Appointment Type Appointme nt Facility Name Sep 27, 2024 01:00 PM AMBULATORY - MEDICINE [facility] Active, Pending, and Scheduled Orders This section includes a listing of several types of active, pending, and scheduled orders, including clinic medications orders, diagnostic test orders, procedure orders and consult orders; where the start date of the order is 45 days before the date of the Encounter or 45 days after the date of theEncounter. The data comes from all [facility]. Test Date/Time Test Type Test Details Facility Name May 19, 2024 12:00 AM Laboratory - Chemi stry Order MICRAL/CREAT PROFILE (STL) URINE [facility] May 19, 2024 12:00 AM Laboratory - Chemi stry Order COMPREHENSIVE METABOLIC PANEL GREEN LI/HEP BLD/PLAS PLASMA [facility] May 19, 2024 12:00 AM Laboratory - Chemi stry Order LIPID PANEL (STL) GREEN LI/HEP BLD/PLAS PLASMA SP ONCE [facility] May 19, 2024 12:00 AM Laboratory - Chemi stry Order CBC BLOOD [facility] May 19, 2024 12:00 AM Laboratory - Chemi stry Order HGA1C BLOOD [facility] May 19, 2024 12:00 AM Laboratory - Chemi stry Order VITAMIN D, 25-HYDROXY GOLD/RED SST SERUM [facility] May 19, 2024 12:00 AM Laboratory - Chemi stry Order TSH (MA-PB-STL) GOLD/RED SST SERUM SP [facility] Encounter Notes: All associated encounter notes This section contains the clinical notes associated to the Encounter. Date/Time Encounter Note(s) Provider Source Apr 28, 2024 12:06 PM PHARMACY MEDICATIO N MGT DISCHARGE NOTE: LOCAL TITLE: PHARMACY COMMUNITY CARE PRESCRIPTION PROCESSING NOT STANDARD TITLE: PHARMACY MEDICATION MGT DISCHARGE NOTE DATE OF NOTE: APR 28, 2024@12:06 ENTRY DATE: APR 28, 2024@12:06:29 AUTHOR: XAVIER WOOD EXP COSIGNER: URGENCY: STATUS: COMPLETED PHARMACY COMMUNITY CARE PRESCRIPTION PROCESSING NOTE STL Has ADDENDA Pharmacy service received prescription(s) via: Inbound ERx ELIGIBILITY: Pharmacy service cannot accept this prescription because the patient is not CCN (Care in the Community) eligible. PRESCRIPTION INFORMATION: Provider Information:Мар[address], [place] [address] phone: [phone] fax: [phone] 1) donepeziL 5 mg tablet (ARICEPT), Take 1 tablet (5 mg total) by mouth nightly for 30 days, THEN 2 tablets (10 mg total) nightly. #150, 0 refills 2) oxyBUTYnin chloride 5 mg tablet (DITROPAN), Take 1 tablet (5 mg total) by mouth 3 (three) times a day #90, 11 refills 3) mirabegron ER 25 mg tablet,extended release 24 hr (MYRBETRIQ), Take 1 tablet (25 mg total) by mouth daily after breakfast #90, 0 refills MED REQUIRES PADR DISPOSITION: Ineligible. Please considering prescribing the above medication(s) for the patient. If declining to prescribe, please comment and add RX to non-VA medication list. /luis/ XAVIER WOOD PharmD [facility] Pharmacist, Pharmacy Signed: 04/28/2024 12:09 Receipt Acknowledged By: 04/28/2024 12:35 /robi KLEIN PA-C * AWAITING SIGNATURE * KALPANA ROJAS 04/28/2024 ADDENDUM STATUS: COMPLETED Please inform the patient that I have filled his donepezil as well as oxybutynin as requested. Unfortunately mirabegron is a nonformulary medication. /robi KLEIN PA-C Signed: 04/28/2024 12:39 Receipt Acknowledged By: * AWAITING SIGNATURE * KALPANA ROJAS BR[facility]GET WHITNEY [facility]
--- OUTSIDE RECORDS SUMMARY | 2024-12-17 08:34 | XMS_ITS ---
Author Name [facility] [place] Organization [facility] [place] [place] Address [address] [place] [address] Care Team Providers Care Supervisor Cigar Making Machine Name Role Phone RADHA KLEIN Primary Care [...] PART A Jan 22, 2003 PART A [id number] [id number] THAD TORIBIO PATIENT MEDICARE (WNR) MEDICARE (M) PART B Jan 22, 2003 PART B [id number] [id number] THAD TORIBIO PATIENT Selected Encounter This section includes the information on record at [place] for the Encounter. Date/Time Encounter Type Encounter Description Reason Provider Source Jul 22, 2024 03:20 PM Outpatient Encounter ADMIN PAT ACTIVTIES (MASNONCT) XAVIER WOOD Encounter Template Text not used by [place] Plan of Treatment: Future Appointments (+ 6 [...] 20 appointments. The data comes from all [facility]. Appointment Date/Time Appointment Type Appointme nt Facility Name Sep 27, 2024 01:00 PM AMBULATORY - MEDICINE [facility] Nov 09, 2024 09:30 AM [facility]ORY - RE[facility]AB [facility] Nov 19, 2024 10:30 AM AMBULATORY - MEDICINE [facility] Dec 06, 2024 09:30 AM [facility] Encounter Notes: All associated encounter notes This section contains the clinical notes associated to the Encounter. Date/Time Encounter Note(s) Provider Source Jul 22, 2024 03:30 PM ADDENDUM: LOCAL TITLE: Addendum STANDARD TITLE: ADDENDUM DATE OF NOTE: JUL 22, 2024@15:30:17 ENTRY DATE: JUL 22, 2024@15:30:18 AUTHOR: RADHA KLEIN COSIGNER: URGENCY: STATUS: COMPLETED Please inform the patient that his donepezil was already ordered through [place] pharmacy and he has oxybutynin currently ordered through [place] pharmacy for his overactive bladder issues and that the new prescription is a nonformulary medication and would require an office note and the reason that the patient is unable to use oxybutynin. /robi KLEIN PA-C Signed: 07/22/2024 15:34 Receipt Acknowledged By: 08/05/2024 16:45 /robi PENALOZA RN, MSN REGISTERED NURSE ====== --- Original Document --- 07/22/24 PHARMACY COMMUNITY CARE PRESCRIPTION PROCESSING NOTE STL: Pharmacy service received prescription(s) via: Inbound ERx ELIGIBILITY: Pharmacy service cannot accept this prescription because the patient is not CCN (Care in the Community) eligible. PRESCRIPTION INFORMATION: Provider Information: NIRMAL MIJARES, [facility], [address] [place] [address] [facility] [address] phone: [phone] fax: [phone] 1) mirabegron ER 50 mg tablet,extended release 24 hr (MYRBETRIQ),Take 1 tablet (50 mg total) by mouth daily after breakfast #90, 0 refills MED REQUIRES PADR 2) donepeziL 10 mg tablet (ARICEPT),Take 1 tablet (10 mg total) by mouth nightly #90, 1 refills PT HAS ACTVIE RX ON FILE FOR MEDICATION FROM [place] PROVIDER DISPOSITION: Ineligible. Please considering prescribing the above medication(s) for the patient. If declining to prescribe, please comment and add RX to non-VA medication list. /luis/ XAVIER WOOD PharmD Community Care Pharmacist, Pharmacy Signed: 07/22/2024 15:25 Receipt Acknowledged By: 07/22/2024 15:30 /luis/ RADHA LAY PA-C [facility] Jul 22, 2024 03:20 PM PHARMACY MEDICATIO N MGT DISCHARGE NOTE: LOCAL TITLE: PHARMACY COMMUNITY CARE PRESCRIPTION PROCESSING NOT STANDARD TITLE: PHARMACY MEDICATION MGT DISCHARGE NOTE DATE OF NOTE: JUL 22, 2024@15:20 ENTRY DATE: JUL 22, 2024@15:20:38 AUTHOR: XAVIER WOOD [facility] EXP COSIGNER: URGENCY: STATUS: COMPLETED PHARMACY COMMUNITY [facility] PRESCRIPTION PROCESSING NOTE STL Has ADDENDA Pharmacy service received prescription(s) via: Inbound ERx ELIGIBILITY: Pharmacy service cannot accept this prescription because the patient is not CCN (Care in the Community) eligible. PRESCRIPTION INFORMATION: Provider Information: NIRMAL MIJARES, [facility], [address] [place] [address] [facility] [address] phone: [phone] fax: [phone] 1) mirabegron ER 50 mg tablet,extended release 24 hr (MYRBETRIQ),Take 1 tablet (50 mg total) by mouth daily after breakfast #90, 0 refills MED REQUIRES PADR 2) donepeziL 10 mg tablet (ARICEPT),Take 1 tablet (10 mg total) by mouth nightly #90, 1 refills PT HAS ACTVIE RX ON FILE [facility] FROM [facility] PROVIDER DISPOSITION: Ineligible. Please considering prescribing the above medication(s) for the patient. If declining to prescribe, please comment and add RX to non-VA medication list. /luis/ XAVIER WOOD PharmD Community Care Pharmacist, Pharmacy Signed: 07/22/2024 15:25 Receipt Acknowledged By: 07/22/2024 15:30 /robi KLEIN PA-C * AWAITING SIGNATURE * GIAN PENALOZA 07/22/2024 ADDENDUM STATUS: COMPLETED Please inform the patient that his donepezil was already ordered through [place] pharmacy and he has oxybutynin currently ordered through [place] pharmacy for his overactive bladder issues and that the new prescription is a nonformulary medication and would require an office note and the reason that the patient is unable to use oxybutynin. /luis/ RADHA KLEIN PA-C Signed: 07/22/2024 15:34 Receipt Acknowledged By: * AWAITING SIGNATURE * GIAN PENALOZA BRIDGET WH[facility]NEY [facility]
--- OUTSIDE RECORDS SUMMARY | 2024-12-17 08:40 | XMS_ITS | Clinical Summary ---
Author Organization [facility] Address [address] [place] [address] Phone Care Team Providers Care Primary School Teacher Name Role Phone Unavailable Unavailable Unavailable Reason [...] Out Time Diagnosis NEW [facility]IT [facility] 1:45PM 11:59PM Insurance Includes: Active Insurance Policies No Insurance Coverage Recorded Guarantor Relationship Effective Dates Guarantor Ph one THAD TORIBIO Self [id number] Clinical Notes Includes: Clinical Notes from this encounter No Clinical Notes Recorded
--- OUTSIDE RECORDS SUMMARY | 2024-12-17 08:40 | XMS_ITS | Continuity of Care Document ---
Author Name [facility] Organization [facility] Care Team Providers Care Lumber Tallier Name Role Phone [facility] Unavailable Unavailable Problems Combined list of problems from Department of Defense and Veterans Affairs facilities. It does not include entries that were removed or entered in error. Problem Status Onset Date Problem Type Date of Resolution Comments Source AF - Atrial Fibrillation (SCT 44417359) Active Condition [facility] Benign hypertension (SNOMED CT 06932784) Active Condition [facility] Dementia Active Condition [facility] Diabetes Mellitus Type 2 (SCT 55205177) Active Condition [facility] Generalised aches and pains Active Condition [facility] H/O: cardiac pacemaker in situ (SNOMED CT 393317715) [facility] Hearing loss (SNOMED CT 57193477) Active Condition [facility] Hyperlipidemia Active Condition 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 Diagnosis: ICD-10-CM E11.9 Type 2 diabetes mellitus without complications Active Diagnosis [facility] Diagnosis: ICD-10-CM Z51.81 Encounter for therapeutic drug level monitoring Active Diagnosis [facility] Medications Combined list of outpatient medications [...] (APAP) FROM ALL MEDS. ORAL ACTIVE 11/20/2025 [id number] Messi MCCOY 2023 200 [facility] ACETAMINOPH EN 500MG TAB TAKE TWO TABLETS BY MOUTH THREE TIMES A DAY NEEDED FOR PAIN CAUTION: DO NOT EXCEED 4000MG PER DAY ACETAMIN OPHEN (APAP) FROM ALL MEDS. ORAL DISCONT INUED 11/21/2024 [id number] 3 RADHA KLEIN 2022 200 [facility] APIXABAN 5MG TAB TAKE ONE TABLET BY MOUTH TWICE A DAY FOR ANTICOAG ULATION ORAL DISCONT INUED (EDIT) 10/31/2024 [id number] 4 VIC CORTEZ 2023 180 [facility] APIXABAN 5MG TAB TAKE ONE TABLET BY MOUTH TWICE A DAY FOR ANTICOAG ULATION ORAL 11/21/2024 [id number] 4 RADHA KLEIN 2022 180 [facility] ATORVASTATI N CA 40MG TAB TAKE ONE-HALF TABLET BY MOUTH EVERY EVENING FOR HIGH CHOLESTE ROL TO LOWER CHOLESTE ROL ORAL ACTIVE 10/21/2025 [id number] 4 GOLDY GANDHI 2023 45 [facility] ATORVASTATI N CA 40MG TAB TAKE ONE-HALF TABLET BY MOUTH EVERY EVENING FOR HIGH CHOLESTE ROL TO LOWER CHOLESTE ROL ORAL DISCONT INUED 11/21/2024 [id number] 4 RADHA KLEIN 2022 45 [facility] ATORVASTATI N CA 40MG TAB TAKE ONE-HALF TABLET BY MOUTH EVERY EVENING TO LOWER CHOLESTE ROL ORAL DISCONT INUED (EDIT) 02/20/2024 [id number] 3 WILLIAM BONILLA SA 2022 45 [facility] DONEPEZIL HCL 10MG TAB TAKE ONE TABLET BY MOUTH ONCE A DAY FOR DEMENTIA (JUST BEFORE BEDTIME) ORAL ACTIVE 07/23/2025 [id number] 4 RADHA KLEIN 2023 90 [facility] DONEPEZIL HCL 10MG TAB TAKE ONE-HALF TABLET BY MOUTH AT BEDTIME FOR 30 DAYS, THEN TAKE ONE TABLET AT BEDTIME FOR DEMENTIA (JUST BEFORE BEDTIME) ORAL DISCONT INUED (EDIT) 07/27/2024 [id number] 4 RADHA KLEIN 2023 75 [facility] LISINOPRIL 5MG TAB TAKE ONE-HALF TABLET BY MOUTH ONCE A DAY FOR HEART OR BLOOD PRESSURE ORAL SUSPEND ED 10/23/2025 [id number] 5 RADHA KLEIN 2023 45 [facility] LISINOPRIL 5MG TAB TAKE ONE-HALF TABLET BY MOUTH ONCE A DAY FOR HEART OR BLOOD PRESSURE ORAL DISCONT INUED 11/21/2024 [id number] RADHA KLEIN 2022 45 [facility] METFORMIN HCL 500MG 24HR TAB,SA TAKE ONE TABLET BY MOUTH ONCE A DAY FOR BLOOD SUGAR CONTROL. TAKE WITH FOOD. AVOID ALCOHOL. DISCONTI NUE BEFORE GETTING XRAY DYE. ORAL ACTIVE 10/21/2025 [id number] 5 GOLDY GANDHI 2023 30 [facility] METFORMIN HCL 500MG 24HR TAB,SA TAKE ONE TABLET BY MOUTH ONCE A DAY FOR BLOOD SUGAR CONTROL. TAKE WITH FOOD. AVOID ALCOHOL. DISCONTI NUE BEFORE GETTING XRAY DYE. ORAL DISCONT INUED 11/21/2024 [id number] RADHA KLEIN 2023 30 [facility] METFORMIN HCL 500MG 24HR TAB,SA TAKE ONE TABLET BY MOUTH ONCE A DAY FOR BLOOD SUGAR CONTROL. TAKE WITH FOOD. AVOID ALCOHOL. DISCONTI NUE BEFORE GETTING XRAY DYE. ORAL DISCONT INUED 11/21/2024 [id number] 4 RAHDA KLEIN 2023 90 [facility] METFORMIN HCL 500MG 24HR TAB,SA TAKE ONE TABLET BY MOUTH ONCE A DAY FOR BLOOD SUGAR CONTROL. TAKE WITH FOOD. AVOID ALCOHOL. DISCONTI NUE BEFORE GETTING XRAY DYE. ORAL DISCONT INUED 04/12/2024 [id number] WILLIMA BONILLA SA 2022 90 [facility] METOPROLOL TARTRATE 50MG TAB TAKE ONE-HALF TABLET BY MOUTH TWICE A DAY FOR HEART/BL OOD PRESSURE . TAKE WITH OR IMMEDIAT CONOR FOLLOWIN G FOOD. ORAL ACTIVE 10/21/2025 [id number] 5 GOLDY GANDHI 2024 90 [facility] METOPROLOL TARTRATE 50MG TAB TAKE ONE-HALF TABLET BY MOUTH TWICE A DAY FOR HEART/BL OOD PRESSURE . TAKE WITH OR IMMEDIAT CONOR FOLLOWIN G FOOD. ORAL DISCONT INUED 11/21/2024 [id number] 4 RADHA KLEIN 2022 90 [facility] METOPROLOL TARTRATE 50MG TAB TAKE ONE-HALF TABLET BY MOUTH TWICE A DAY FOR HEART/BL OOD PRESSURE . TAKE WITH OR IMMEDIAT CONOR FOLLOWIN G FOOD. ORAL DISCONT INUED (EDIT) 02/20/2024 [id number] 3 WILLIAM BONILLA SA 2022 90 [facility] OXYBUTYNIN CL 5MG TAB TAKE ONE TABLET BY MOUTH THREE TIMES A DAY FOR OVERACTI VE BLADDER ORAL ACTIVE 04/29/2025 [id number] 4 RADHA KLEIN 2023 270 [facility] Allergies, Adverse Reactions, Alerts Combined list of allergies from Department of Defense and Veterans Affairs facilities. It does not include entries that were removed or entered in error. Substance Category Reaction Severity Reaction type Status Date Reported Comments Source NIACIN Propensity to adverse reactions to drug (finding) [place] active 05/22/2023 [facility] Immunizations Combined list of available immunizations from the Department of Defense and Veterans Affairs facilities. Immunization Series Date Given Administered By Site Reaction Lot Number CVX Code Drug Order Processing Manager Status Comments Source TDAP 2023 KALPANA ROJAS LEFT DELTO ID [id number] 115 complet [facility] COVID-19 (Quincus), MRNA, LNP-S, PF, ARIELLE-SUCROSE, 30 MCG/0.3 ML (AGES 12+ YEARS) 2023 309 complet [facility] INFLUENZA, UNSPECIFIED FORMULATION 2023 88 complet [facility]IS[facility] N INFLUENZA, UNSPECIFIED FORMULATION 2022 88 complet [facility] N ZOSTER RECOMBINANT 2 2022 PARK MCGILL L RIGHT DELTO ID [id number] 187 complet ed ADJUVANT [id number] 05/10/24 [facility] INFLUENZA VACCINE, QUADRIVALENT, ADJUVANTED 2021 205 complet [facility] ZOSTER RECOMBINANT 1 2021 187 complet [facility] COVID-19 (Quincus), MRNA, LNP-S, PF, 30 MCG/0.3 ML DOSE 3 2020 208 complet ed [facility] INFLUENZA, UNSPECIFIED FORMULATION 2020 88 complet [facility] DIVISIO N INFLUENZA, HIGH-DOSE, QUADRIVALENT 2 2020 197 [facility]ACCHAR[facility] PPV23 2020 [facility] (Quincus), MRNA, LNP-S, PF, 30 MCG/0.3 ML DOSE 2 2020 208 complet [facility] N COVID-19 (PFIZER), MRNA, LNP-S, PF, 30 MCG/0.3 ML DOSE 1 2020 208 complet ed [facility] INFLUENZA, HIGH DOSE SEASONAL 1 2016 135 complet ed [facility] ZOSTER LIVE 2013 121 complet ed [facility] ZOSTER LIVE 1 2013 121 complet ed [facility] PNEUMOCOCCAL CONJUGATE PCV 13 2012 133 complet ed Immunizat ion Record [facility] TD(ADULT) UNSPECIFIED FORMULATION 2011 139 complet ed [facility] TD(ADULT) UNSPECIFIED FORMULATION 2007 139 complet ed Left Deltoid [facility] PNEUMOCOCCAL, UNSPECIFIED FORMULATION 2005 109 complet ed [facility] Results Combined list of recent chemistry, hematology and other laboratory results from Department of Defense and Veterans Affairs, ranging from 15 months to all on record, depending upon the facility. Order Name Results Value Reference Range Date Interpretation Specimen Comments Source CBC LEUKOCYTES [#/VOLUME] IN BLOOD BY AUTOMATED COUNT 7.4 10*3/u L 3.6 - 11.2 11/19 Specimen Type: BLOOD No comment entered. Ordering Provider: KATHIA MCCOY Report Released Date/Time: Nov 19, 2024 11:20 AM Reporting Lab: [facility] [address] [place] [phone] Performing Lab: [facility] [address] [place] [phone] [facility] CBC ERYTHROCYTE S [#/VOLUME] IN BLOOD BY AUTOMATED COUNT 4.79 10*6/u L 4.10 - 5.70 11/19 Specimen Type: BLOOD No comment entered. Ordering Provider: KATHIA MCCOY Report Released Date/Time: Nov 19, 2024 11:20 AM Reporting Lab: [facility] [address] [place] [phone] Performing Lab: [address] [address] [facility] CBC HEMOGLOBIN [MASS/VOLUM E] IN BLOOD 13.7 g/dL 13.1 - 16.8 11/19 Specimen Type: BLOOD No comment entered. Ordering Provider: KATHIA MCCOY Report Released Date/Time: Nov 19, 2024 11:20 AM Reporting Lab: [address] [address] Performing Lab: [address] [address] [facility] CBC HEMATOCRIT [VOLUME FRACTION] OF BLOOD 42.1 38.2 - 48.4 11/19 Specimen Type: BLOOD No comment entered. Ordering Provider: KATHIA MCCOY Report Released Date/Time: Nov 19, 2024 11:20 AM Reporting Lab: [address] [address] Performing Lab: [address] [address] [facility] CBC MCV [ENTITIC VOLUME] BY AUTOMATED COUNT 87.9 fL 80.0 - 100.0 11/19 Specimen Type: BLOOD No comment entered. Ordering Provider: KATHIA MCCOY Report Released Date/Time: Nov 19, 2024 11:20 AM Reporting Lab: [address] [address] Performing Lab: [address] [address] [facility] CBC MCH [ENTITIC MASS] BY AUTOMATED COUNT 28.6 pg 27.0 - 34.0 11/19 Specimen Type: BLOOD No comment entered. Ordering Provider: KATHIA MCCOY Report Released Date/Time: Nov 19, 2024 11:20 AM Reporting Lab: [address] [phone] Performing Lab: [address] [phone] [facility] [facility] [facility] CBC MCHC [MASS/VOLUM E] BY AUTOMATED COUNT 32.5 g/dL 33.0 - 36.0 11/19 L Specimen Type: BLOOD No comment entered. Ordering Provider: KATHIA MCCOY Report Released Date/Time: Nov 19, 2024 11:20 AM Reporting Lab: [address] [address] Performing Lab: [place] [id number] [place] [address] [facility] CBC PLATELETS [#/VOLUME] IN BLOOD BY AUTOMATED COUNT 216 10*3/u L 150 - 400 11/19 Specimen Type: BLOOD No comment entered. Ordering Provider: KATHIA MCCOY Report Released Date/Time: Nov 19, 2024 11:20 AM Reporting Lab: [place] [address] Performing Lab: [address] [facility] CBC PLATELET MEAN VOLUME [ENTITIC VOLUME] IN BLOOD BY AUTOMATED COUNT 10.2 fL 7.5 - 11.2 11/19 Specimen Type: BLOOD No comment entered. Ordering Provider: KATHIA MCCOY Report Released Date/Time: Nov 19, 2024 11:20 AM Reporting Lab: [address] [address] Performing Lab: [address] [phone] [place] [address] [facility] CBC ERYTHROCYTE DISTRIBUTIO N WIDTH [RATIO] BY AUTOMATED COUNT 12.0 11.8 - 15.1 11/19 Specimen Type: BLOOD No comment entered. Ordering Provider: KATHIA MCCOY Report Released Date/Time: Nov 19, 2024 11:20 AM Reporting Lab: [address] [address] Performing Lab: [address] [phone] [facility] CBC LYMPHOCYTES /100 LEUKOCYTES IN BLOOD BY AUTOMATED COUNT 29 11/19 Specimen Type: BLOOD No comment entered. Ordering Provider: KATHIA MCCOY Report Released Date/Time: Nov 19, 2024 11:20 AM Reporting Lab: [facility] [address] [facility] [address] Performing Lab: [facility] [address] [facility] [address] [facility] CBC MONOCYTES/1 00 LEUKOCYTES IN BLOOD BY AUTOMATED COUNT 7 11/19 Specimen Type: BLOOD No comment entered. Ordering Provider: KATHIA MCCOY Report Released Date/Time: Nov 19, 2024 11:20 AM Reporting Lab: [facility] [address] [facility] [address] Performing Lab: [facility] [address] [facility] [address] [facility] CBC NEUTROPHILS /100 LEUKOCYTES IN BLOOD BY AUTOMATED COUNT 58 11/19 Specimen Type: BLOOD No comment entered. Ordering Provider: KATHIA MCCOY Report Released Date/Time: Nov 19, 2024 11:20 AM Reporting Lab: [facility] [address] [facility] [address] Performing Lab: [facility] [address] [facility] [address] [facility] CBC EOSINOPHILS /100 LEUKOCYTES IN BLOOD BY AUTOMATED COUNT 5 11/19 Specimen Type: BLOOD No comment entered. Ordering Provider: KATHIA MCCOY Report Released Date/Time: Nov 19, 2024 11:20 AM Reporting Lab: [facility] [address] [facility] [address] Performing Lab: [facility] [address] [facility] [address] [facility] CBC BASOPHILS/1 00 LEUKOCYTES IN BLOOD BY AUTOMATED COUNT 1 11/19 Specimen Type: BLOOD No comment entered. Ordering Provider: KATHIA MCCOY Report Released Date/Time: Nov 19, 2024 11:20 AM Reporting Lab: [facility] [address] [facility] [address] Performing Lab: [facility] [address] [facility] [address] [facility] CBC LYMPHOCYTES [#/VOLUME] IN BLOOD BY AUTOMATED COUNT 2.15 10*3/u L 0.77 - 4.50 11/19 Specimen Type: BLOOD No comment entered. Ordering Provider: KATHIA MCCOY Report Released Date/Time: Nov 19, 2024 11:20 AM Reporting Lab: [address] [address] Performing Lab: [address] [address] [facility] CBC MONOCYTES [#/VOLUME] IN BLOOD BY AUTOMATED COUNT 0.55 10*3/u L 0.19 - 0.80 11/19 Specimen Type: BLOOD No comment entered. Ordering Provider: KATHIA MCCOY Report Released Date/Time: Nov 19, 2024 11:20 AM Reporting Lab: [facility] [address] [place] [phone] Performing Lab: [address] [address] [facility] CBC NEUTROPHILS [#/VOLUME] IN BLOOD BY AUTOMATED COUNT 4.29 10*3/u L 2.10 - 8.00 11/19 Specimen Type: BLOOD No comment entered. Ordering Provider: KATHIA MCCOY Report Released Date/Time: Nov 19, 2024 11:20 AM Reporting Lab: [facility] [address] [place] [phone] Performing Lab: [address] [address] [facility] CBC EOSINOPHILS [#/VOLUME] IN BLOOD BY AUTOMATED COUNT 0.37 10*3/u L 0.00 - 0.60 11/19 Specimen Type: BLOOD No comment entered. Ordering Provider: KATHIA MCCOY Report Released Date/Time: Nov 19, 2024 11:20 AM Reporting Lab: [facility] [address] [place] [phone] Performing Lab: [address] [address] [facility] CBC BASOPHILS [#/VOLUME] IN BLOOD BY AUTOMATED COUNT 0.06 10*3/u L 0.00 - 0.20 11/19 Specimen Type: BLOOD No comment entered. Ordering Provider: KATHIA MCCOY Report Released Date/Time: Nov 19, 2024 11:20 AM Reporting Lab: [address] [address] Performing Lab: [place] [phone] [facility] COMPREHENS JONNY METABOLIC PANEL CREATININE [MASS/VOLUM E] IN SERUM OR PLASMA 0.76 mg/dL 0.7 - 1.3 11/19 Specimen Type: PLASMA Comment: No hemolysis noted. Ordering Provider: KATHIA MCCOY Report Released Date/Time: Nov 19, 2024 11:20 AM Reporting Lab: [address] [address] Performing Lab: [phone] [place] [address] [facility] COMPREHENS JONNY METABOLIC PANEL UREA NITROGEN [MASS/VOLUM E] IN SERUM OR PLASMA 17.3 mg/dL 9.0 - 25.0 11/19 Specimen Type: PLASMA Comment: No hemolysis noted. Ordering Provider: KATHIA MCCOY Report Released Date/Time: Nov 19, 2024 11:20 AM Reporting Lab: [address] [address] Performing Lab: [address] [address] [facility] COMPREHENS JONNY METABOLIC PANEL GLUCOSE [MASS/VOLUM E] IN SERUM OR PLASMA 141 mg/dL 72 - 99 11/19 H Specimen Type: PLASMA Comment: No hemolysis noted. Ordering Provider: KATHIA MCCOY Report Released Date/Time: Nov 19, 2024 11:20 AM Reporting Lab: [facility] [address] [facility] [address] Performing Lab: [facility] [address] [facility] [address] [facility] COMPREHENS JONNY METABOLIC PANEL SODIUM [MOLES/VOLU ME] IN SERUM OR PLASMA 140 meq/L 136 - 145 11/19 Specimen Type: PLASMA Comment: No hemolysis noted. Ordering Provider: KATHIA MCCOY Report Released Date/Time: Nov 19, 2024 11:20 AM Reporting Lab: [facility] [address] [facility] [address] Performing Lab: [facility] [address] [place] [phone] [facility] COMPREHENS JONNY METABOLIC PANEL POTASSIUM [MOLES/VOLU ME] IN SERUM OR PLASMA 4.7 meq/L 3.5 - 5 11/19 Specimen Type: PLASMA Comment: No hemolysis noted. Ordering Provider: KATHIA MCCOY Report Released Date/Time: Nov 19, 2024 11:20 AM Reporting Lab: [facility] [address] [facility] [address] Performing Lab: [facility] [address] [place] [phone] [facility] COMPREHENS JONNY METABOLIC PANEL CHLORIDE [MOLES/VOLU ME] IN SERUM OR PLASMA 108 meq/L 98 - 107 11/19 H Specimen Type: PLASMA Comment: No hemolysis noted. Ordering Provider: KATHIA MCCOY Report Released Date/Time: Nov 19, 2024 11:20 AM Reporting Lab: [facility] [address] [facility] [address] Performing Lab: [facility] [address] [place] [phone] [facility] COMPREHENS JONNY METABOLIC PANEL CARBON DIOXIDE, TOTAL [MOLES/VOLU ME] IN SERUM OR PLASMA 27 meq/L 22 - 31 11/19 Specimen Type: PLASMA Comment: No hemolysis noted. Ordering Provider: KATHIA MCCOY Report Released Date/Time: Nov 19, 2024 11:20 AM Reporting Lab: [facility] [address] [facility] [address] Performing Lab: [facility] [address] [facility] [address] [facility] COMPREHENS JONNY METABOLIC PANEL CALCIUM [MASS/VOLUM E] IN SERUM OR PLASMA 9.4 mg/dL 8.4 - 10.4 11/19 Specimen Type: PLASMA Comment: No hemolysis noted. Ordering Provider: KATHIA MCCOY Report Released Date/Time: Nov 19, 2024 11:20 AM Reporting Lab: [place] [address] [facility] [address] Performing Lab: [place] [address] [facility] [address] [facility] COMPREHENS JONNY METABOLIC PANEL PROTEIN [MASS/VOLUM E] IN SERUM OR PLASMA 7.4 g/dL 6 - 8.6 11/19 Specimen Type: PLASMA Comment: No hemolysis noted. Ordering Provider: KATHIA MCCOY Report Released Date/Time: Nov 19, 2024 11:20 AM Reporting Lab: [place] [address] [facility] [address] Performing Lab: [place] [address] [facility] [address] [facility] COMPREHENS JONNY METABOLIC PANEL ALBUMIN [MASS/VOLUM E] IN SERUM OR PLASMA 4.4 g/dL 3.4 - 5 11/19 Specimen Type: PLASMA Comment: No hemolysis noted. Ordering Provider: KATHIA MCCOY Report Released Date/Time: Nov 19, 2024 11:20 AM Reporting Lab: [facility] [address] Performing Lab: [address] [address] [facility] COMPREHENS JONNY METABOLIC PANEL BILIRUBIN.T OTAL [MASS/VOLUM E] IN SERUM OR PLASMA 0.7 mg/dL 0.2 - 1.2 11/19 Specimen Type: PLASMA Comment: No hemolysis noted. Ordering Provider: KATHIA MCCOY Report Released Date/Time: Nov 19, 2024 11:20 AM Reporting Lab: [facility] [address] [facility] [address] Performing Lab: [facility] [address] [facility] [address] [facility] COMPREHENS JONNY METABOLIC PANEL ALKALINE PHOSPHATASE [ENZYMATIC ACTIVITY/VO LUME] IN SERUM OR PLASMA 80 U/L 40 - 150 11/19 Specimen Type: PLASMA Comment: No hemolysis noted. Ordering Provider: KATHIA MCCOY Report Released Date/Time: Nov 19, 2024 11:20 AM Reporting Lab: [facility] [address] [place] [phone] Performing Lab: [facility] [address] [place] [phone] [facility] COMPREHENS JONNY METABOLIC PANEL ASPARTATE AMINOTRANSF ERASE [ENZYMATIC ACTIVITY/VO LUME] IN SERUM OR PLASMA 20 U/L 5 - 34 11/19 Specimen Type: PLASMA Comment: No hemolysis noted. Ordering Provider: KATHIA MCCOY Report Released Date/Time: Nov 19, 2024 11:20 AM Reporting Lab: [facility] [address] [place] [phone] Performing Lab: [facility] [address] [place] [phone] [facility] COMPREHENS JONNY METABOLIC PANEL ALANINE AMINOTRANSF ERASE [ENZYMATIC ACTIVITY/VO LUME] IN SERUM OR PLASMA 21 U/L 8 - 40 11/19 Specimen Type: PLASMA Comment: No hemolysis noted. Ordering Provider: KATHIA MCCOY Report Released Date/Time: Nov 19, 2024 11:20 AM Reporting Lab: [facility] [address] [place] [phone] Performing Lab: [facility] [address] [place] [phone] [facility] COMPREHENS JONNY METABOLIC PANEL GLOMERULAR FILTRATION RATE/1.73 SQ M.PREDICTED [VOLUME RATE/AREA] IN SERUM, PLASMA OR BLOOD BY CREATININE- BASED FORMULA (CKD-EPI 2020) 87.5 60 11/19 Specimen Type: PLASMA Comment: No hemolysis noted. Ordering Provider: KATHIA MCCOY Report Released Date/Time: Nov 19, 2024 11:20 AM Reporting Lab: [address] [phone] Performing Lab: [address] [id number] [facility] HGA1C HEMOGLOBIN A1C/HEMOGLO BIN.TOTAL IN BLOOD 7.4 4.0 - 6.0 11/19 H Specimen Type: BLOOD No comment entered. Ordering Provider: KATHIA MCCOY Report Released Date/Time: Nov 19, 2024 11:20 AM Reporting Lab: [address] [id number] Performing Lab: [id number] [place] [address] [facility] LIPID PANEL (STL) CHOLESTEROL [MASS/VOLUM E] IN SERUM OR PLASMA 145 mg/dL 0 - 200 11/19 Specimen Type: PLASMA Comment: No hemolysis noted. Ordering Provider: KATHIA MCCOY Report Released Date/Time: Nov 19, 2024 11:20 AM Reporting Lab: [address] [phone] Performing Lab: [address] [address] [address] [facility] LIPID PANEL (STL) TRIGLYCERID E [MASS/VOLUM E] IN SERUM OR PLASMA 106 mg/dL 0 - 150 11/19 Specimen Type: PLASMA Comment: No hemolysis noted. Ordering Provider: KATHIA MCCOY Report Released Date/Time: Nov 19, 2024 11:20 AM Reporting Lab: [address] [address] Performing Lab: [address] [address] [facility] LIPID PANEL (STL) CHOLESTEROL IN LDL [MASS/VOLUM E] IN SERUM OR PLASMA BY CALCULATION 94 mg/dL 11/19 Specimen Type: PLASMA Comment: No hemolysis noted. Ordering Provider: KATHIA MCCOY Report Released Date/Time: Nov 19, 2024 11:20 AM Reporting Lab: [address] [address] Performing Lab: [place] [phone] [facility] LIPID PANEL (STL) CHOLESTEROL IN HDL [MASS/VOLUM E] IN SERUM OR PLASMA 30 mg/dL 40 11/19 L Specimen Type: PLASMA Comment: No hemolysis noted. Ordering Provider: KATHIA MCCOY Report Released Date/Time: Nov 19, 2024 11:20 AM Reporting Lab: [place] [address] Performing Lab: [address] [facility] MICRAL/CRE AT PROFILE (STL) ALBUMIN [MASS/VOLUM E] IN URINE <5.0mg /L 11/19 Specimen Type: URINE Comment: uALB/CREAT Ratio Unable to be calculated Unable to calculate due to Microalbumin < 5.0 mg/L Ordering Provider: KATHIA MCCOY Report Released Date/Time: Nov 19, 2024 11:20 AM Reporting Lab: [place] [address] Performing Lab: [address] [phone] [place] [address] [facility] MICRAL/CRE AT PROFILE (STL) ALBUMIN/CRE ATININE [MASS RATIO] IN URINE commen tmg/g 0 - 29 11/19 Specimen Type: URINE Comment: uALB/CREAT Ratio Unable to be calculated Unable to calculate due to Microalbumin < 5.0 mg/L Ordering Provider: KATHIA MCCOY Report Released Date/Time: Nov 19, 2024 11:20 AM Reporting Lab: [address] [place] [address] Performing Lab: [place] [phone] [facility] MICRAL/CRE AT PROFILE (STL) CREATININE [MASS/VOLUM E] IN URINE 73.2 mg/dL 63 - 166 11/19 Specimen Type: URINE Comment: uALB/CREAT Ratio Unable to be calculated Unable to calculate due to Microalbumin < 5.0 mg/L Ordering Provider: KATHIA MCCOY Report Released Date/Time: Nov 19, 2024 11:20 AM Reporting Lab: [place] [address] Performing Lab: [address] [facility] TSH (MA-PB) THYROTROPIN [UNITS/VOLU ME] IN SERUM OR PLASMA 0.928 u[IU]/ mL 0.47 - 5 11/19 Specimen Type: SERUM No comment entered. Ordering Provider: KATHIA MCCOY Report Released Date/Time: Nov 19, 2024 11:20 AM Reporting Lab: [place] [phone] Performing Lab: [address] [facility] URINALYSIS (STL-PB) COLOR OF URINE Light- Yellow 11/19 Specimen Type: URINE No comment entered. Ordering Provider: KATHIA MCCOY Report Released Date/Time: Nov 19, 2024 11:20 AM Reporting Lab: [place] [phone] Performing Lab: [address] [facility] URINALYSIS (STL-PB) BILIRUBIN.T OTAL [PRESENCE] IN URINE BY TEST STRIP Negati vemg/d L 11/19 Specimen Type: URINE No comment entered. Ordering Provider: KATHIA MCCOY Report Released Date/Time: Nov 19, 2024 11:20 AM Reporting Lab: [facility] [address] [facility] [address] Performing Lab: [address] [address] [facility] URINALYSIS (STL-PB) PH OF URINE BY TEST STRIP 6.5 5.0 - 8.0 11/19 Specimen Type: URINE No comment entered. Ordering Provider: KATHIA MCCOY Report Released Date/Time: Nov 19, 2024 11:20 AM Reporting Lab: [place] [address] [facility] [address] Performing Lab: [address] [phone] [facility] URINALYSIS (STL-PB) LEUKOCYTES [#/AREA] IN URINE SEDIMENT BY MICROSCOPY HIGH POWER FIELD <1/[HP F] 0 - 5 11/19 Specimen Type: URINE No comment entered. Ordering Provider: KATHIA MCCOY Report Released Date/Time: Nov 19, 2024 11:20 AM Reporting Lab: [facility] [address] Performing Lab: [address] [address] [facility] URINALYSIS (STL-PB) ERYTHROCYTE S [#/VOLUME] IN URINE SEDIMENT BY MICROSCOPY HIGH POWER FIELD <1/[HP F] 0 - 5 11/19 Specimen Type: URINE No comment entered. Ordering Provider: KATHIA MCCOY Report Released Date/Time: Nov 19, 2024 11:20 AM Reporting Lab: [facility] [address] [place] [phone] Performing Lab: [address] [address] [facility] URINALYSIS (STL-PB) APPEARANCE OF URINE Clear 11/19 Specimen Type: URINE No comment entered. Ordering Provider: KATHIA MCCOY Report Released Date/Time: Nov 19, 2024 11:20 AM Reporting Lab: [facility] [address] [place] [phone] Performing Lab: [facility] [address] [place] [phone] [facility] URINALYSIS (STL-PB) NITRITE [PRESENCE] IN URINE BY TEST STRIP Negati vemg/d L 11/19 Specimen Type: URINE No comment entered. Ordering Provider: KATHIA MCCOY Report Released Date/Time: Nov 19, 2024 11:20 AM Reporting Lab: [facility] [address] [place] [phone] Performing Lab: [address] [phone] [facility] URINALYSIS (STL-PB) MUCUS [PRESENCE] IN URINE SEDIMENT BY LIGHT MICROSCOPY RARE/[ LPF] 11/19 Specimen Type: URINE No comment entered. Ordering Provider: KATHIA MCCOY Report Released Date/Time: Nov 19, 2024 11:20 AM Reporting Lab: [facility] [address] [place] [phone] Performing Lab: [phone] [place] [address] [facility] URINALYSIS (STL-PB) URATE CRYSTALS AMORPHOUS [PRESENCE] IN URINE SEDIMENT BY LIGHT MICROSCOPY OCC/[H PF] 11/19 Specimen Type: URINE No comment entered. Ordering Provider: KATHIA MCCOY Report Released Date/Time: Nov 19, 2024 11:20 AM Reporting Lab: [facility] [address] [place] [phone] Performing Lab: [facility] [address] [place] [phone] [facility] URINALYSIS (STL-PB) GLUCOSE [MASS/VOLUM E] IN URINE BY TEST STRIP Normal mg/dL 11/19 Specimen Type: URINE No comment entered. Ordering Provider: KATHIA MCCOY Report Released Date/Time: Nov 19, 2024 11:20 AM Reporting Lab: [facility] [address] [place] [phone] Performing Lab: [facility] [address] [place] [phone] [facility] URINALYSIS (STL-PB) PROTEIN [MASS/VOLUM E] IN URINE BY TEST STRIP 50 mg/dL 11/19 H Specimen Type: URINE No comment entered. Ordering Provider: KATHIA MCCOY Report Released Date/Time: Nov 19, 2024 11:20 AM Reporting Lab: [address] [phone] Performing Lab: [place] [phone] [facility] URINALYSIS (STL-PB) URN.UROBILI NOGEN Normal mg/dL 11/19 Specimen Type: URINE No comment entered. Ordering Provider: KATHIA MCCOY Report Released Date/Time: Nov 19, 2024 11:20 AM Reporting Lab: [address] [phone] Performing Lab: [address] [phone] [facility] URINALYSIS (STL-PB) HEMOGLOBIN [MASS/VOLUM E] IN URINE BY TEST STRIP Negati vemg/d L 11/19 Specimen Type: URINE No comment entered. Ordering Provider: KATHIA MCCOY Report Released Date/Time: Nov 19, 2024 11:20 AM Reporting Lab: [address] [address] Performing Lab: [address] [phone] [place] [address] [facility] URINALYSIS (STL-PB) KETONES [MASS/VOLUM E] IN URINE BY TEST STRIP Negati vemg/d L 11/19 Specimen Type: URINE No comment entered. Ordering Provider: KATHIA MCCOY Report Released Date/Time: Nov 19, 2024 11:20 AM Reporting Lab: [facility] [address] [facility] [address] Performing Lab: [place] [address] [facility] [address] [facility] URINALYSIS (STL-PB) URN.LEUK.ES T. Negati vemg/d L 11/19 Specimen Type: URINE No comment entered. Ordering Provider: KATHIA MCCOY Report Released Date/Time: Nov 19, 2024 11:20 AM Reporting Lab: [place] [address] [facility] [address] Performing Lab: [place] [phone] [place] [address] [facility] URINALYSIS (STL-PB) SPECIFIC GRAVITY OF URINE 1.020 11/19 Specimen Type: URINE No comment entered. Ordering Provider: KATHIA MCCOY Report Released Date/Time: Nov 19, 2024 11:20 AM Reporting Lab: [place] [phone] Performing Lab: [place] [phone] [facility] VITAMIN D, 25-HYDROXY 25-HYDROXYV ITAMIN D3 [MASS/VOLUM E] IN SERUM OR PLASMA 32.8 ng/mL 30 - 96 11/19 Specimen Type: SERUM No comment entered. Ordering Provider: KATHIA MCCOY Report Released Date/Time: Nov 19, 2024 11:20 AM Reporting Lab: [facility] [address] Performing Lab: [address] [phone] [facility] HGA1C HEMOGLOBIN A1C/HEMOGLO BIN.TOTAL IN BLOOD 6.9 4.0 - 6.0 11/25 H Specimen Type: BLOOD No comment entered. Ordering Provider: MADELIN KLEIN Report Released Date/Time: Nov 21, 2023 03:06 PM Reporting Lab: [place] [address] [place] [address] Performing Lab: [facility] [address] [facility] [address] [facility] MICRAL/CRE AT PROFILE (STL) ALBUMIN [MASS/VOLUM E] IN URINE 11.4 mg/L 11/25 Specimen Type: URINE No comment entered. Ordering Provider: MADELIN KLEIN Report Released Date/Time: Nov 21, 2023 03:06 PM Reporting Lab: [facility] [address] [place] [phone] Performing Lab: [address] [address] [facility] MICRAL/CRE AT PROFILE (STL) ALBUMIN/CRE ATININE [MASS RATIO] IN URINE 6 mg/g 0 - 29 11/25 Specimen Type: URINE No comment entered. Ordering Provider: MADELIN KLEIN Report Released Date/Time: Nov 21, 2023 03:06 PM Reporting Lab: [facility] [address] Performing Lab: [address] [address] [facility] MICRAL/CRE AT PROFILE (STL) CREATININE [MASS/VOLUM E] IN URINE 197.2 mg/dL 63 - 166 11/25 H Specimen Type: URINE No comment entered. Ordering Provider: MADELIN KLEIN Report Released Date/Time: Nov 21, 2023 03:06 PM Reporting Lab: [facility] [address] Performing Lab: [address] [address] [facility] Vital Signs Combined list of inpatient and outpatient Vital Signs from Department of Defense and Veterans Affairs, ranging from 12 months to all on record, depending upon the facility. Vital Sign Value Date Comments Source SYSTOLIC BLOOD PRESSURE 147 11/19/2024 10:25:08 [facility] DIASTOLIC BLOOD PRESSURE 82 11/19/2024 10:25:08 [facility] PULSE OXIMETRY 94 11/19[facility]24 [facility] WEIGHT 177.7 11/19/2024 10:25:[facility] [place] [facility] BMI 26kg/m2 11/19/2024 10:25:08 [facility] [place] [facility] PAIN 1 11/19/2024 10:25:08 [facility] TEMPERATURE 97.9 11/19/2024 10:25:08 [facility] PULSE 67 11/19/2024 10:25:08 [facility] RESPIRATION 20 11/19/2024 10:25:08 [facility] Encounters Combined list of: 1) Encounters from Department of [facility] facilities going back up to thelast 18 months. 2) Encounters from the Department of [facility] facilities going back up to 280 months. Location Location Details Encounter Type Encounter Number Reason For Visit Attending Provider ADM Date DC Date Status Disposition Source [facility] Outpatient Encounter [id number] 09/24 [facility] Outpatient Encounter [id number] 10/14 [facility] Outpatient Encounter [id number] 10/27 [facility] Outpatient Encounter [id number] 10/29 [facility] HC PRO PHONE CALL 5-10 MIN [id number] Diagnos is: ICD-10- CM Z51.81 Encount er for therape utic drug level monitor ing<br/ > THAD CORTEZ 10/31 [facility] N [facility] Outpatient Encounter [id number] 11/21 [facility] OFFICE O/P EST MOD 30-39 MIN [id number] Diagnos is: ICD-10- CM E11.9 Type 2 diabete s mellitu s without complic ations< br/> LATOYA,T ODD 11/21 [facility] Outpatient Encounter [id number] LATOYA,T ODD 11/28 [facility] FLU IMMUNIZE ORDER/ADMI N [id number] Diagnos is: ICD-10- CM Z23 Encount er for immuniz ation<b r/> YADY KNIGHT RA 12/02 [facility] Outpatient Encounter [id number] VANESSA WOOD 04/28 [facility] Outpatient Encounter [id number] PB HAILE 04/29 [facility] Outpatient Encounter [id number] 06/17 [facility] Outpatient Encounter [id number] VANESSA WOOD IDGET PILI 07/22 [facility] Outpatient Encounter [id number] VANESSA WOOD IDGET PILI 07/22 [facility] Outpatient Encounter [id number] VANESSA WOOD IDGET PILI 07/22 [facility] Outpatient Encounter [id number] 07/25 [facility] Outpatient Encounter [id number] 08/02 [facility] HC PRO PHONE CALL 11-20 MIN [id number] Diagnos is: ICD-10- CM Z91.138 Patient 's uninten t undrdos e of meds regimen for oth reason< br/> BRINA PENALOZA C 08/05 [facility] En[facility] [id number] BRINA PENALOZA C 08/30 [facility] Outpatient Encounter [id number] Diagnos is: ICD-10- CM Z02.9 Encount er for adminis trative examina tions, unspeci fied
KLEIN,T ODD 09/27 [facility] Encounter [id number] 09/27 [facility] Outpatient Encounter [id number] ZITA DESAI O 09/27 [facility] Outpatient Encounter [id number] 09/28 [facility] Outpatient Encounter [id number] 10/19 [facility] Outpatient Encounter [id number] 10/20 [facility] Outpatient Encounter [id number] 10/26 [facility] OT EVAL MOD COMPLEX 45 MIN [id number] Diagnos is: ICD-10- CM 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
FLINT,ANDR EW H 11/09 [facility] N [facility] OFFICE O/P EST HI 40 MIN [id number] Diagnos is: ICD-10- CM I48.91 Unspeci fied atrial fibrill ation<b r/> SALVADOR MCCOY SA 11/19 [facility] Outpatient Encounter [id number] 11/19 [facility] N [facility] Outpatient Encounter [id number] 11/22 [facility] N [facility] Outpatient Encounter [id number] KLEIN,T ODD 11/23 [facility] N [facility] Outpatient Encounter [id number] 11/30 [facility] SELF CARE MNGMENT TRAINING [id number] Diagnos is: ICD-10- CM 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
FLINT,ANDR EW H 12/06 [facility] N Social History Combined list of available smoking, tobacco, and other social history from Department of Defense and Veterans Affairs facilities. Social History Type Response Date Comment Sourc e Tobacco smoking status NHIS VA-TOBACCO USE FORMER CIGARETTES 11/19/2024 [facility] History of tobacco use VA-TOBACCO USE EVERY DAY OTHER TYPE 11/19/2024 [facility] History of tobacco use PA-TOBACCO USER EVERY DAY 05/22/2023 [facility] 03/04/2022 [facility] History of tobacco use QUIT TOBACCO >7 YEARS AGO 10/26/2013 [facility]
--- OUTSIDE RECORDS SUMMARY | 2024-12-17 08:41 | XMS_ITS ---
Author Organization [facility] Address [address] [place] [address] Phone Care Team Providers Care Automotive Lube Technician Name Role Phone Unavailable Unavailable Unavailable Plan [...] Dates Guarantor Ph one THAD TORIBIO Self [phone] Clinical Notes Includes: Signed Clinical Notes starting from 12/13/2022 No Clinical Notes Recorded
--- OUTSIDE RECORDS SUMMARY | 2024-12-17 08:41 | XMS_ITS ---
Care Plan - [facility] Created on: December 17, 2024 THAD TORIBIO : 1940 Sex: Male Author Organization [facility] Address [address] [place] [address] Phone Care Team Providers Care Prospect Manager Name Role Phone Unavailable Unavailable Unavailable
--- NOTE | 2024-12-17 08:43 | ED_ITS ---
HPI - General Adult General Chief complaint: Fall Stated complaint: Fall Injury/Left Knee/Chest Time Seen by Provider: 12/17/24 08:43 Source: patient, family, RN notes reviewed and old records reviewed Mode of arrival: ambulatory Limitations: no limitations History of Present Illness HPI narrative: 84 year old male accompanied by presents to express care with complaints of working on frozen pipes in the garage with a friend and forgot he left a trap door up and fell down into it.4 days ago. Patient reports that he twisted his left knee and has some discomfort to the anterior aspect with swelling and some discomfort to the back of his knee, full mobility noted. Patient reports that he also has some pain to the right lower lateral chest area with small bruise noted on lateral distal posterior chest. patient reports that he has been taking some Tylenol for his discomfort but didn't take any this morning.Patient denies hitting his head or any LOC at time of fall down into trap door, patient is on daily Eliquis. MD complaint: right lateral lower chest and to left knee from fall into trap door Onset (ago): day(s) (on Friday 4 days ago) Severity scale (1-10): 2 Quality: aching Treatments prior to arrival: other (Tylenol) Related Data Home Medications ?Medication ?Instructions ?Recorded ?Confirmed ?Last Taken ?Type Eliquis 12/17/24 Unknown History atorvastatin 12/17/24 Unknown History lisinopril .ROUTE 12/17/24 Unknown History metformin 12/17/24 Unknown History metoprolol 12/17/24 Unknown History Allergies Allergy/AdvReac Type Severity Reaction Status Date / Time niacin Allergy Mild Unknown Verified 12/17/24 08:46 Review of Systems Review of Systems: CONSTITUTIONAL: Denies fever, chills, or sweats. EYES: Denies visual changes, redness, or discharge. ENT: Denies rhinorrhea, congestion, sore throat, or otalgia. CARDIOVASCULAR: Denies chest pain, palpitations, or edema.Reports that he has right distal lateral chest discomfort from his fall down into the trap door RESPIRATORY: Denies cough admits to some FIELD which he states is normal for him, no tachypnea noted with SAO2 97% on room air GASTROINTESTINAL: Denies abdominal pain, nausea, vomiting, or diarrhea. GENITOURINARY: Denies dysuria or hematuria. SKIN: Denies rash or itching. MUSCULOSKELETAL: Denies back pain,positive for pain and swelling to the left knee, or myalgia. NEUROLOGIC: Denies headache, numbness, or weakness. PSYCHIATRIC: Denies anxiety or depression. All systems reviewed & are unremarkable except as noted in HPI and below PMFSH Past Medical History Medical History (Updated 12/17/24 @ 09:46 by Laurita Pickard NP) Myocardial infarction Hx of retirement use of blood thinners Hyperlipidemia Diabetes Pacemaker CAD (coronary artery disease) Hypertension Surgical History Surgical History (Updated 12/17/24 @ 09:44 by Laurita Pickard NP) History of prostatectomy for prostate cancer with radiation follow up Social History Social History (Updated 12/17/24 @ 09:43 by Laurita Pickard NP) Smoking status: Former smoker Tobacco type: cigarettes Additional smoking assessment comments: Quit over 25 years ago Alcohol intake: never Substance use: never Living arrangements: with family Occupation/Education: retired Gender identity (if verbalized by the patient): Male Comments At time of signature, agree with nursing past medical, surgical, social and family history. There is no relevant family history pertinent to the presenting complaint Exam Narrative: GENERAL: Well-appearing, well-nourished, and in no acute distress. HEAD: Normocephalic, atraumatic. EYES: PERRLA and EOMI. ENT: Nares clear, no rhinorrhea or epistaxis. Mucous membranes moist. TM;s normal throat pink with no swelling or pain NECK: Supple. no lymphadenopathy CHEST: Clear to auscultation. No respiratory distress. pain to lower lateral right chest wall, small bruise to lateral posterior chest region, no increased pain with deep breathing, no cough noted SAO2 97% on room air HEART: Regular rate and rhythm. No murmur heard. Normal peripheral pulses. ABDOMEN: Soft, nontender, nondistended, normal active bowel sounds. EXTREMITIES: Normal range of motion. No edema.Exception noted to left anterior knee with palpable swelling with discomfort anterior and posterior knee, able to bend on own power with some disomfort noted, sensation and circulation intact. SKIN: Warm, dry, no rash. NEURO: No focal deficits. Alert and oriented x3. Course Course Emergency Course: Patient is aware of diagnosis, understands and agrees to treatment plan.? Anti cipatory guidance given.? Patient agrees to follow-up as directed and is aware of reasons to seek care at the emergency department. Portions of this record may have been created with voice recognition software Level of Care: Express Care Visit Vital Signs Vital signs: Vital Signs Temperature 35.9 C L 12/17/24 08:34 Pulse Rate 86 12/17/24 08:34 Respiratory Rate 16 12/17/24 08:34 Blood Pressure 111/70 12/17/24 08:34 Pulse Oximetry 97 12/17/24 08:34 Oxygen Delivery Room Air 12/17/24 08:34 Temperature 35.9 C L 12/17/24 08:34 Pulse Rate 86 12/17/24 08:34 Respiratory Rate 16 12/17/24 08:34 Blood Pressure 111/70 12/17/24 08:34 Pulse Oximetry 97 12/17/24 08:34 Oxygen Delivery Room Air 12/17/24 08:34 Reviewed Medical Decision Making MDM Narrative Medical decision making narrative: Exam findings and imaging show no acute concerns or changes; patient is non- toxic appearing and is in no distress.? Patient is appropriate for outpatient treatment and follow-up Differential Diagnosis Differential Diagnosis: left knee sprain/strain, left knee joint effusion,pain and swelling left knee, contusion to chest wall, fracture of rib, pain right lateral rib area. Medical Records Medical records reviewed: Yes I reviewed the external patient's medical records. Vital Signs Vital Signs: Vital Signs Temperature 35.9 C L 12/17/24 08:34 Pulse Rate 86 12/17/24 08:34 Respiratory Rate 16 12/17/24 08:34 Blood Pressure 111/70 12/17/24 08:34 Pulse Oximetry 97 12/17/24 08:34 Oxygen Delivery Room Air 12/17/24 08:34 Temperature 35.9 C L 12/17/24 08:34 Pulse Rate 86 12/17/24 08:34 Respiratory Rate 16 12/17/24 08:34 Blood Pressure 111/70 12/17/24 08:34 Pulse Oximetry 97 12/17/24 08:34 Oxygen Delivery Room Air 12/17/24 08:34 reviewed Imaging Data Attestation: I personally reviewed and interpreted this imaging study as follows: My impression: left knee moderate osteoarthritis,small left knee joint effusion Right 9th rib lateral fracture nondisplaced, midthoracic compression fracture,likely chronic Radiologist's impression: [facility] [address] [place] [address] XRay Report Signed Patient: Keon Davis : 1940 MR#: [id number] Age: 84 Acct:[id number] Loc: [facility] ADM Date: 12/17/24Attending Dr: Ordering Physician: Laurita Pickard APRN Date of Service: 12/17/24 Procedure(s): XR knee LT min 4V Accession Number(s): [id number] cc: Nicanor, Remigio MAR; Laurita Pickard FINANCING ANALYST~ EXAMINATION: XR knee LT min 4V DATE: 12/17/2024 09:10 INDICATION: Left knee injury and pain and swelling. TECHNIQUE: 4 views of left knee were obtained. COMPARISON: None. FINDINGS: Alignment is normal. No fracture. There is moderate osteoarthritis of medial compartment and mild osteoarthritis of lateral and patellofemoral compartments. There is a small knee joint effusion. IMPRESSION: 1. Moderate left knee osteoarthritis. 2. Small left knee joint effusion. Reviewed, dictated and finalized at location B. R FOLDER Please be advised this is a medical document. It is intended for [id number] communication. It is written in medical language and may contain unfamiliar abbreviations or verbiage. Medical documents are intended to carry relevant information, facts as evident, and the clinical opinion of the practitioner at the time of the encounter. This report may have been done utilizing a voice recognition system. Attempts have been made to correct errors. However, there may be uncorrected grammatical, spelling, and recognition errors present. The file time of this note does not necessarily represent the time of service. Dictated By: Mika Hammonds MD 12/17/24 0915 Signed By: <Electronically signed by Mika Hammonds MD in OV> [facility] [address] [place] [address] [place] [address] XRay Report Signed Patient: Keon Davis : 1940 MR#: [id number] Age: 84 Acct:[id number] Loc: [facility] ADM Date: 12/17/24Attending Dr: Ordering Physician: Laurita Pickard APRN Date of Service: 12/17/24 Procedure(s): XR chest 2V Accession Number(s): [id number] cc: Nicanor, Remigio MAR; Laurita Pickard APRN~ EXAMINATION: XR chest 2V DATE: 12/17/2024 09:10 INDICATION: Right-sided lower rib tenderness post fall TECHNIQUE: PA and lateral views of the chest were obtained. COMPARISON: None FINDINGS: Cortical angulation consistent with nondisplaced fracture of the lateral right ninth rib. Lungs are clear with no focal airspace opacities, pulmonary edema, pleural effusion or pneumothorax. Heart size is normal. Tortuous and atherosclerotic thoracic aorta. Dual lead pacemaker seen with leads projecting over the expected locations of the right atrium and right ventricle. Mild thoracic spondylosis with mild anterior wedging of a couple vertebral bodies at the thoracolumbar junction and additional midthoracic compression fracture. IMPRESSION: 1. Nondisplaced lateral right ninth rib fracture. 2. No acute cardiopulmonary disease. 3. Midthoracic compression fracture, likely chronic. Reviewed, dictated and finalized at location A. R FOLDER Please be advised this is a medical document. It is intended for [id number] communication. It is written in medical language and may contain unfamiliar abbreviations or verbiage. Medical documents are intended to carry relevant information, facts as evident, and the clinical opinion of the practitioner at the time of the encounter. This report may have been done utilizing a voice recognition system. Attempts have been made to correct errors. However, there may be uncorrected grammatical, spelling, and recognition errors present. The file time of this note does not necessarily represent the time of service. Dictated By: Keon Navarro MD 12/17/24 0913 Signed By: <Electronically signed by Keon Navarro MD in OV> Critical Care Time Critical Care Time Critical Care Time: No Discharge Plan Discharge Clinical Impression: Effusion of knee joint, left Right rib fracture Qualifiers: Encounter type: initial encounter Rib fracture type: single rib Fracture type: closed Qualified Code(s): S22.31XA - Fracture of one rib, right side, initial encounter for closed fracture Patient Disposition: Home, Self-Care Condition: Stable Instructions: Rib Fracture (ED), Swollen Knee Joint (ED) Additional Instructions: Elastic wrap or orthopedic splint such as neoprene sleeve to left knee for comfort measures 5-7 days May use Ney yen topical, Biofreeze or OTC Voltaren ointment Tylenol for lesser pain Follow-up with orthopedic surgeon if any continued concerns or pain of left knee Follow-up with PCP if further problems or concerns Ice to the area 20-30 minutes 4-6 times a day Elevate above heart Follow up with your PCP in the next 7-10 days If your symptoms persist, change or worsen significantly before you can contact your personal physician then please, without delay, go to the emergency department for further evaluation. Follow-up with PCP in 7-10 days or sooner if needed X-ray reports given to patient Patient Language: Maori Follow-up/Referrals: Nicanor,MD Remigio [Primary Care Provider] - Time of Disposition: 09:32 Quality Aurelia Coma Scale Eyes: Open Verbal: Oriented and Alert Motor: Follows Commands Dianne Coma Total Score: 15
== END 2024-12-17 09:37 | disposition home or self-care (01) ==
PROVIDERS: Emergency Provider Registered Nurse; PCP Hospitalist
DX: M25.462 Effusion, left knee (principal); S22.31XA Fracture of one rib, right side, initial encounter for closed fracture; W17.89XA Other fall from one level to another, initial encounter; Z79.01 Long term (current) use of anticoagulants; I25.2 Old myocardial infarction; E78.5 Hyperlipidemia, unspecified; E11.9 Type 2 diabetes mellitus without complications; I25.10 Atherosclerotic heart disease of native coronary artery without angina pectoris; I10 Essential (primary) hypertension; Z95.0 Presence of cardiac pacemaker; Z87.891 Personal history of nicotine dependence
CPT/HCPCS: 71046; 73564; 99214; G0463